=== PATIENT | male | born 1970 | race Caucasian/White ===

== ENCOUNTER 2016-10-07 06:36 | Inpatient (IN) | payer OTHER ==
[~2016-10-07] VITALS: Ht 180.3 cm; Wt 80.0 kg
[~2016-10-07 06:36] MED LIST: CEPH500C PO; LRT5 PO
[2016-10-07] MEDS ORDERED: SODIUM CHLORIDE 0.9% 1000ML 1,000 ML IV ONE (07:00)
--- NOTE | 2016-10-07 07:02 | EMERGENCY ROOM VISIT NOTE ---
History Report prepared by Ranjan: Theresa Max Under the Supervision of: Dr. Kayode Beverly M.D. First contact with patient: 06:51 Chief Complaint: ABDOMINAL PAIN Stated Complaint: ABDOMINAL PAIN History of Present Illness The patient is a 46 year old male who presents to the Emergency Room with complaints of persistent diffuse abdominal pain that began around 0300 this morning. He currently rates his discomfort as a 10/10 in severity and he describes his pain as a stabbing, pressure, and sharp pain. The patient states that over the past three days he has been battling chills, diaphoresis, and a sore throat. He states that his symptoms appeared to be clearing up yesterday and was beginning to feel better. The patient states that at 0300 this morning he developed abdominal pain and he denies ever having pain like this in the past. He additionally associates nausea, vomiting, and diarrhea with his symptoms today. The patient denies any history of abdominal surgeries. Source of History: patient Onset: 0300 this morning Position: abdomen (diffuse) Symptom Intensity: 10/10 Quality: pressure, sharp, stabbing Timing: other (persistent) Associated Symptoms: + chills, + diaphoresis, + diarrhea, + nausea, + sorethroat, + vomiting Review of Systems All systems have been listed, reviewed, and are negative other than those previously mentioned. Please see Additional Medical History Sheet. Past Medical & Surgical Medical Problems: (1) No active medical problems Family History Patient reports no known family medical history. Social History Smoking Status: Never Smoker Alcohol Use: occasionally Marital Status: Occupation Status: employed Current/Historical Medications No Active Prescriptions or Reported Meds Allergies Coded Allergies: No Known Allergies (Unverified , 10/07/16) Physical Exam Vital Signs Date Time Temp Pulse Resp B/P Pulse Ox O2 Delivery O2 Flow Rate FiO2 10/07/16 11:40 37.4 99 12 138/90 93 Room Air 10/07/16 11:24 103 16 138/82 94 10/07/16 11:18 103 16 138/82 94 Room Air 10/07/16 09:55 112 16 130/82 93 Room Air 10/07/16 08:13 120 16 128/96 93 Room Air 10/07/16 06:46 99 10/07/16 06:42 38.1 91 22 142/105 97 Room Air Physical Exam GENERAL: Patient awake, alert, oriented x 3. Patient follows commands. Patient appears to be in moderate to severe distress. Patient is adequately hydrated and well-nourished. SKIN: No erythema, pallor, cyanosis or rash HEENT: Normal head, pupils equal, reactive to light and accommodation. Oral cavity and posterior pharynx appear slightly dry. Neck: Without adenopathy, no neck vein distention. LUNGS: Clear to auscultation. No wheezes, no rales, no rhonchi. HEART: No murmurs. No gallops. No rubs ABDOMEN: Diffuse tenderness to palpation, bowel sounds are present. No masses, no rebound, no hepatomegaly or splenomegaly. EXTREMITIES: No signs of trauma. No pedal or pretibial edema. No calf or thigh tenderness. NEUROLOGIC: Cranial nerves II-XII within normal limits. No gross motor sensory function deficits. Medical Decision & Procedures ER Provider Diagnostic Interpretation: CT results are interpretations by the radiologist and per my review. ABDOMEN AND PELVIS CT WITH IV AND ORAL CONTRAST CT DOSE: 300.22 mGy.cm HISTORY: mid abd pain TECHNIQUE: Multiaxial CT images of the abdomen and pelvis were performed following the use of intravenous and oral contrast. COMPARISON STUDY: None. FINDINGS: Mild dependent changes seen within the lung bases. Moderate pneumoperitoneum. No suspicious lytic or blastic osseous lesions. The spleen, gallbladder, liver, adrenal glands, and kidneys are unremarkable. Possible pancreas divisum. The pancreas enhances normally. No retroperitoneal lymphadenopathy. The bladder is unremarkable. Multiple colonic diverticula. Inflammatory change seen within the pelvis surrounding the small bowel and the mid sigmoid colon. Therefore, these findings favor acute diverticulitis. This likely results in the free air due to the perforation. Normal caliber appendix. Thickened loops of small bowel from the deep pelvis may be reactive. No evidence for bowel obstruction. Few scattered small partially loculated fluid collections seen within the deep pelvis, left lower quadrant, and mid abdomen/pelvis. The mid abdominal/pelvic collection measures 2.3 cm. These may represent small developing abscesses. IMPRESSION: 1. Moderate pneumoperitoneum. The exact location is difficult to identify but is likely due to perforated acute sigmoid diverticulitis. 2. There are few small partially loculated fluid collection seen within the pelvis suggestive of developing abscesses. 3. Thickened loops of small bowel within the deep pelvis may be reactive to the adjacent inflammatory change. No evidence for bowel obstruction. 4. Additional findings as described above. 5. These findings were discussed with Dr. Beverly at 10:00 AM on 10/07/2016. Electronically signed by: Arturo Gaspar M.D. 10/07/2016 10:05 AM Dictated Date/Time: 10/07/2016 9:56 AM Laboratory Results 10/07/16 06:50 Red Blood Count 5.47, Mean Corpuscular Volume 86.8, Mean Corpuscular Hemoglobin 31.4, Mean Corpuscular Hemoglobin Concent 36.2, Mean Platelet Volume 9.7, Neutrophils (%) (Auto) 86.8, Lymphocytes (%) (Auto) 7.1, Monocytes (%) (Auto) 5.7, Eosinophils (%) (Auto) 0.0, Basophils (%) (Auto) 0.2, Neutrophils # (Auto) 5.77, Lymphocytes # (Auto) 0.47, Monocytes # (Auto) 0.38, Eosinophils # (Auto) 0.00, Basophils # (Auto) 0.01 10/07/16 06:50 Test 10/07/16 06:50 10/07/16 06:55 White Blood Count 6.64 K/uL (4.8-10.8) Red Blood Count 5.47 M/uL (4.7-6.1) Hemoglobin 17.2 g/dL (14.0-18.0) Hematocrit 47.5 % (42-52) Mean Corpuscular Volume 86.8 fL (80-100) Mean Corpuscular Hemoglobin 31.4 pg (25-34) Mean Corpuscular Hemoglobin Concent 36.2 g/dl (32-36) Platelet Count 128 K/uL (130-400) Mean Platelet Volume 9.7 fL (7.4-10.4) Neutrophils (%) (Auto) 86.8 % Lymphocytes (%) (Auto) 7.1 % Monocytes (%) (Auto) 5.7 % Eosinophils (%) (Auto) 0.0 % Basophils (%) (Auto) 0.2 % Neutrophils # (Auto) 5.77 K/uL (1.4-6.5) Lymphocytes # (Auto) 0.47 K/uL (1.2-3.4) Monocytes # (Auto) 0.38 K/uL (0.11-0.59) Eosinophils # (Auto) 0.00 K/uL (0-0.5) Basophils # (Auto) 0.01 K/uL (0-0.2) RDW Standard Deviation 39.2 fL (36.4-46.3) RDW Coefficient of Variation 12.2 % (11.5-14.5) Immature Granulocyte % (Auto) 0.2 % Immature Granulocyte # (Auto) 0.01 K/uL (0.00-0.02) Anion Gap 9.0 mmol/L (3-11) Estimated GFR () 75.3 Estimated GFR (Non- 65.0 BUN/Creatinine Ratio 9.0 (10-20) Calcium Level 8.4 mg/dl (8.5-10.1) Total Bilirubin 0.9 mg/dl (0.2-1) Aspartate Amino Transf (AST/SGOT) 18 U/L (15-37) Alanine Aminotransferase (ALT/SGPT) 22 U/L (12-78) Alkaline Phosphatase 65 U/L (45-117) Total Protein 7.5 gm/dl (6.4-8.2) Albumin 4.1 gm/dl (3.4-5.0) Globulin 3.4 gm/dl (2.5-4.0) Albumin/Globulin Ratio 1.2 (0.9-2) Lipase 113 U/L (73-393) Laboratory results as stated above per my review. Medications Administered Medications (Trade) Dose Ordered Sig/Westley Route Start Time Stop Time Status Last Admin Dose Admin Morphine Sulfate (MoRPHine SULFATE INJ) 8 mg Q1H PRN IV 10/07/16 07:00 10/21/16 06:59 10/07/16 11:01 8 MG Ondansetron HCl 4 mg 4 mg PRN PRN IV 10/07/16 07:00 11/06/16 06:59 10/07/16 11:01 4 MG Sodium Chloride (Nss 1000ml) 1,000 ml @ 1,000 mls/hr Q1H ONCE IV 10/07/16 07:00 10/07/16 07:59 DC 10/07/16 07:15 1,000 MLS/HR ECG Rate (beats per minute): 97 Rhythm: normal sinus Findings: nonspecific-ST abn, no ectopy ED Course 0650: Past medical records reviewed. The patient was evaluated in room B11B. A complete history and physical examination was performed. 0700: Ordered Sodium Chloride 1000 ml @ 1000 mls/hr IV, Zofran Inj 4 mg IV, Morphine Sulfate 8 mg IV. 0741: I reevaluated the patient and he is feeling much better. 0959: I discussed the patients case with Dr. Gaspar, Radiology. He notes that the patient has perforated diverticulitis. 1004: I reevaluated the patient and he is resting comfortably. I discussed the exam findings with him and I discussed the treatment plan. General Surgery will be consulted for further evaluation and treatment. 1014: I discussed the patients case with Dr. Brown General Surgery. He is going to come evaluate the patient for further treatment. Medical Decision Nurses notes reviewed. Medical history sheet reviewed. Differential diagnosis includes but is not limited to: acute gastroenteritis, peptic/gastric ulcer disease, bowel obstruction, diverticulitis, metabolic disorder, kidney stone, mesenteric infarction. Patient arrived here in severe distress. Patient can hardly stay still. Patient was given IV pain medication with help considerably repeat exam was unremarkable he had a soft but vaguely tender abdomen. Multiple labs and imaging were obtained. CT of his abdomen revealed free air consistent with a perforation most likely in the sigmoid colon. The patient remained afebrile and his white count was not elevated. Consultation was obtained with surgery who evaluated the patient in the ED. The patient was given IV fluids, morphine, Zofran. Consults Time Called: 1010 Consulting Physician: Dr. Brown, General Surgery Returned Call: [phone] I discussed the patients case with Dr. Brown, General Surgery. He is going to come evaluate the patient for further treatment. Impression Primary Impression: Perforated viscus Additional Impression: Hypokalemia Scribe Attestation The scribe's documentation has been prepared under my direction and personally reviewed by me in its entirety. I confirm that the note above accurately reflects all work, treatment, procedures, and medical decision making performed by me. Departure Information Dispostion Being Evaluated By Surgeon Prescriptions No Active Prescriptions or Reported Meds Problem Qualifiers
[2016-10-07 07:07] LABS: BASO % 0.2 %; BASO ABS # 0.01 K/uL (0-0.2); COMPLETE YES; HEMATOCRIT 47.5 % (42-52); IG% 0.2 %; LYMPH % 7.1 %; LYMPH ABS # 0.47 K/uL (1.2-3.4); MEAN CELL VOLUME 86.8 fL (80-100); MEAN CORPUSCULAR HEMOGLOBIN 31.4 pg (25-34); MEAN CORPUSCULAR HGB CONC 36.2 g/dl (32-36); MEAN PLATELET VOLUME 9.7 fL (7.4-10.4); MONO % 5.7 %; NEUT % 86.8 %; PLATELET COUNT 128 K/uL (130-400); RED BLOOD COUNT 5.47 M/uL (4.7-6.1); WHITE BLOOD COUNT 6.64 K/uL (4.8-10.8)
[2016-10-07] MEDS: ONDANSETRON INJ 2 MG/ML 2 ML VIAL IV PRN ×3 (07:14→23:39)
[2016-10-07] MEDS: MoRPHine SULFATE 10 MG/ML CARP/VIAL IV PRN ×3 (07:15→11:01)
[2016-10-07 07:33] LABS: ALT/SGPT 22 U/L (12-78); AST/SGOT 18 U/L (15-37); BLOOD UREA NITROGEN 12 mg/dl (7-18); CALCIUM 8.4 mg/dl (8.5-10.1); CARBON DIOXIDE 27 mmol/L (21-32); CHLORIDE 100 mmol/L (98-107); GLUCOSE 178 mg/dl (70-99); POTASSIUM 3.1 mmol/L (3.5-5.1); SODIUM 136 mmol/L (136-145)
[2016-10-07 07:36] LABS: ALB/GLOB RATIO 1.2 (0.9-2); ALKALINE PHOSPHATASE 65 U/L (45-117)
[2016-10-07] MEDS ORDERED: OPTIRAY 320 IV PRN (09:15)
--- NOTE | 2016-10-07 10:07 | DIAGNOSTIC IMAGING REPORT ---
ABDOMEN AND PELVIS CT WITH IV AND ORAL CONTRAST CT DOSE: 300.22 mGy.cm HISTORY: mid abd pain TECHNIQUE: Multiaxial CT images of the abdomen and pelvis were performed following the use of intravenous and oral contrast. COMPARISON STUDY: None. FINDINGS: Mild dependent changes seen within the lung bases. Moderate pneumoperitoneum. No suspicious lytic or blastic osseous lesions. The spleen, gallbladder, liver, adrenal glands, and kidneys are unremarkable. Possible pancreas divisum. The pancreas enhances normally. No retroperitoneal lymphadenopathy. The bladder is unremarkable. Multiple colonic diverticula. Inflammatory change seen within the pelvis surrounding the small bowel and the mid sigmoid colon. Therefore, these findings favor acute diverticulitis. This likely results in the free air due to the perforation. Normal caliber appendix. Thickened loops of small bowel from the deep pelvis may be reactive. No evidence for bowel obstruction. Few scattered small partially loculated fluid collections seen within the deep pelvis, left lower quadrant, and mid abdomen/pelvis. The mid abdominal/pelvic collection measures 2.3 cm. These may represent small developing abscesses. IMPRESSION: 1. Moderate pneumoperitoneum. The exact location is difficult to identify but is likely due to perforated acute sigmoid diverticulitis. 2. There are few small partially loculated fluid collection seen within the pelvis suggestive of developing abscesses. 3. Thickened loops of small bowel within the deep pelvis may be reactive to the adjacent inflammatory change. No evidence for bowel obstruction. 4. Additional findings as described above. 5. These findings were discussed with Dr. Beverly at 10:00 AM on 10/07/2016. Electronically signed by: Arturo Gaspar M.D. 10/07/2016 10:05 AM Dictated Date/Time: 10/07/2016 9:56 AM
--- NOTE | 2016-10-07 11:29 | Surgery Consultation ---
Consultation Date of Consultation: Oct 07, 2016. Attending Physician: (Eunice Bates PA-C) History of Present Illness Damian is a pleasant 46 year-old male who presented to the emergency room via ambulance this morning complaining of severe generalized abdominal pain that woke him up this morning. States he had chills, sweating and sore throat on Friday however denied of any abdominal pain at the time. States he was severely shivering with chills and using 6 blankets to keep warm. Sore throat and chills and sweating seemed to resolve and then woke up with the pain this morning. Has never had similar abdominal pain in the past. States he could barely move this morning due to the abdominal pain, every step caused pain. Did not feel he could drive to the hospital himself because of the pain. Had some dry heaves and vomiting this morning. Denies of any changes in his bowel habits recently, diarrhea, constipation, blood in stools, black/tarry stools, mucous in stools, unintentional weight loss, dysuria, blood in urine, air in urine. States he feels as though he has to urinate but cannot and abdomen feels bloated. States the pain is better with his knees up. Damian had no leukocytosis however a fever of 38.[address] scan of the abdomen and pelvis with contrast showed inflammatory change in the pelvis with findings of acute diverticulitis of the sigmoid colon with pneumoperitoneum suggest acute diverticulitis with perforation and possible formation of abscess in the pelvis. Damian states he has never been diagnosed with diverticulosis or had any episodes of diverticulitis in the past. (Eunice Bates PA-C) Past Medical/Surgical History Medical Problems: (1) Perforated viscus Status: Acute (Eunice Bates PA-C) Family History Patient reports no known family medical history. (Eunice Bates PA-C) Patient reports no known family medical history. (Felipe Brown M.D.) Social History Smoking Status: Never Smoker (uses chewing tobacco) Smokeless Tobacco Use: Yes Alcohol Use: occasionally Drug Use: none Marital Status: Occupation Status: employed (Eunice Bates PA-C) Allergies Coded Allergies: No Known Allergies (Unverified , 10/07/16) Home Medications No Active Prescriptions or Reported Meds Current Inpatient Medications Current Inpatient Medications Medications (Trade) Dose Ordered Sig/Westley Route Start Time Stop Time Status Last Admin Dose Admin Morphine Sulfate (MoRPHine SULFATE INJ) 8 mg Q1H PRN IV 10/07/16 07:00 10/21/16 06:59 10/07/16 11:01 8 MG Ondansetron HCl (Zofran Inj) 4 mg PRN PRN IV 10/07/16 07:00 11/06/16 06:59 10/07/16 11:01 4 MG Ioversol (Optiray 320) 125 ml UD PRN IV 10/07/16 09:15 10/11/16 09:14 (Eunice Bates PA-C) Review of Systems Constitutional: + chills, + fever, + sweats, No weight loss Cardiovascular: No chest pain Abdomen: + diarrhea, + nausea, + pain, + vomiting Genitourinary - Male: + urinary retention, No dysuria, No hematuria Endocrine: + fatigue Integumentary: No rash (Eunice Bates, PEDROC) Physical Exam Date Time Temp Pulse Resp B/P Pulse Ox O2 Delivery O2 Flow Rate FiO2 10/07/16 09:55 112 16 130/82 93 Room Air 10/07/16 08:13 120 16 128/96 93 Room Air 10/07/16 06:46 99 10/07/16 06:42 38.1 91 22 142/105 97 Room Air General Appearance: WD/WN, + moderate distress Head: normocephalic, atraumatic Eyes: sclerae normal ENT: hearing grossly normal Neck: supple, trachea midline Respiratory/Chest: lungs clear, normal breath sounds, no respiratory distress, no accessory muscle use Cardiovascular: no murmur, + tachycardia Abdomen/GI: soft, no organomegaly, + distended (mild), + guarding (involuntary guarding, no peritonitis, no rigidity) Back: normal inspection, no CVA tenderness Extremities/Musculoskelatal: normal inspection, no pedal edema Neurologic/Psych: alert, normal mood/affect, oriented x 3 Skin: normal color, warm/dry, no rash (Eunice Bates PA-C) Laboratory Results Last 24 Hours Test 10/07/16 06:50 10/07/16 06:55 White Blood Count 6.64 K/uL Red Blood Count 5.47 M/uL Hemoglobin 17.2 g/dL Hematocrit 47.5 % Mean Corpuscular Volume 86.8 fL Mean Corpuscular Hemoglobin 31.4 pg Mean Corpuscular Hemoglobin Concent 36.2 g/dl Platelet Count 128 K/uL Mean Platelet Volume 9.7 fL Neutrophils (%) (Auto) 86.8 % Lymphocytes (%) (Auto) 7.1 % Monocytes (%) (Auto) 5.7 % Eosinophils (%) (Auto) 0.0 % Basophils (%) (Auto) 0.2 % Neutrophils # (Auto) 5.77 K/uL Lymphocytes # (Auto) 0.47 K/uL Monocytes # (Auto) 0.38 K/uL Eosinophils # (Auto) 0.00 K/uL Basophils # (Auto) 0.01 K/uL RDW Standard Deviation 39.2 fL RDW Coefficient of Variation 12.2 % Immature Granulocyte % (Auto) 0.2 % Immature Granulocyte # (Auto) 0.01 K/uL Sodium Level 136 mmol/L Potassium Level 3.1 mmol/L Chloride Level 100 mmol/L Carbon Dioxide Level 27 mmol/L Anion Gap 9.0 mmol/L Blood Urea Nitrogen 12 mg/dl Creatinine 1.30 mg/dl Estimated GFR () 75.3 Estimated GFR (Non- 65.0 BUN/Creatinine Ratio 9.0 Random Glucose 178 mg/dl Calcium Level 8.4 mg/dl Total Bilirubin 0.9 mg/dl Aspartate Amino Transf (AST/SGOT) 18 U/L Alanine Aminotransferase (ALT/SGPT) 22 U/L Alkaline Phosphatase 65 U/L Total Protein 7.5 gm/dl Albumin 4.1 gm/dl Globulin 3.4 gm/dl Albumin/Globulin Ratio 1.2 Lipase 113 U/L (Eunice Bates ., MARISA) Assessment & Plan Acute Diverticulitis with Perforation and Pneumoperitoneum -no leukocytosis - febrile on arrival to ED - CT scan showing free air and inflammatory process in the pelvis surrounding small bowel and colon likely acute diverticulitis and possible abscess formation - Abdomen soft, no peritonitis however involuntary guarding present throughout abdomen Plan: Plan to take patient back to operating room for exploratory laparotomy, colon resection with colostomy formation and placement of wound vac. Patient was informed of the indications of the procedure as well as the risks including but not limited to bleeding, infection, injury to surrounding organs/tissues, ureter injury, wound infection, cardiopulmonary complications, blood clots, and . Patient understands and informed consent obtained He will be admitted to the med/surg floor post op most likely for 5-7 days He will be placed on antibiotics pre-operatively and post-operatively Dr. Brown has seen and examined patient, agrees with above stated findings and treatment plan. (Eunice Bates ., MARISA) I interviewed and examined this patient and reviewed the lab values and the radiology images and reports and I agree with the above note. 46 y/o with chills for the last 3 days who awoke wihth severe abdominal pain this AM. Pain increased with motion. Diffuse tenderness on exam with significant involuntary guarding. CT consistent with perforated diverticulitis with significant free air. Discussed options with patient but feel surgical intervention is best option. I explained the procedure including the formation of a colostomy and leaving the skin open and the use of a wound vac. I explained the possible complications and answered his questions and he has signed a consent form. (Felipe Brown M.D.)
[2016-10-07] MEDS ORDERED: FENTANYL CITRATE INJ 50 MCG/1 ML 2 ML VIAL ONE ×2 (11:47→13:00)
[2016-10-07] MEDS ORDERED: MIDAZOLAM HCL 1 MG/ML 2ML VIAL ONE (11:47)
[2016-10-07] MEDS ORDERED: EpHEDrine SULFATE INJ 50 MG/ML AMP IV PRN ×2 (12:15→13:15)
[2016-10-07] MEDS ORDERED: CEFOXITIN IV 2,000 MG in DEXTROSE 5% 50ML 50 ML IV SCH (12:15)
[2016-10-07] MEDS ORDERED: FENTANYL CITRATE INJ 50 MCG/1 ML 2 ML VIAL IV PRN ×2 (12:15→13:15)
[2016-10-07] MEDS ORDERED: HYDROmorphone INJ 0.5 MG/0.5 ML SYR IV PRN (12:15)
[2016-10-07] MEDS ORDERED: ONDANSETRON INJ 2 MG/ML 2 ML VIAL IV PRN ×2 (12:15→13:15)
[2016-10-07] MEDS ORDERED: ATROPINE SULFATE 0.1 MG/ML 5ML SYR IV PRN ×2 (12:15→13:15)
[2016-10-07] MEDS ORDERED: HYDROmorphone INJ 2 MG/ML SYR/VIAL ONE (12:42)
[2016-10-07] MEDS ORDERED: DEXAMETHASONE SOD INJ 4 MG/ML VIAL ONE (12:55)
[2016-10-07] MEDS ORDERED: LIDOCAINE HCL 2% 2 ML VIAL (20MG/ML) ONE (12:55)
[2016-10-07] MEDS ORDERED: GLYCOPYRROLATE INJ 0.2 MG/ML VIAL ONE (12:55)
[2016-10-07] MEDS ORDERED: NEOSTIGMINE METHYLSULFATE 5 MG/5 ML SYR ONE (12:55)
[2016-10-07] MEDS ORDERED: SUCCINYLCHOLINE CHLORIDE 20 MG/ML 10 ML VIAL IV ONE (12:55)
[2016-10-07] MEDS ORDERED: ONDANSETRON INJ 2 MG/ML 2 ML VIAL ONE (12:55)
[2016-10-07] MEDS ORDERED: PROPOFOL IV EMULSION 10 MG/ML 20 ML VIAL IV ONE (12:55)
[2016-10-07] MEDS ORDERED: ROCURONIUM BROMIDE 10 MG/ML 5 ML VIAL ONE ×2 (12:55→13:01)
[2016-10-07] MEDS ORDERED: HYDROmorphone INJ 1 MG/ML SYR IV PRN (13:15)
--- NOTE | 2016-10-07 14:52 | [facility] Post Operative Brief Note ---
Immediate Operative Summary Operative Date Oct 07, 2016. Pre-Operative Diagnosis Acute Diverticulitis with Perforation and Pneumoperitoneum Post-Operative Diagnosis Perforated Diverticulitis Procedure(s) Performed Exploratory Laparotomy, Partial Sigmoid Resection, Formation of Colostomy Surgeon Dr. Felipe Brown [employer] Surgeon(s) Eunice Bates PA-C Estimated Blood Loss 250mL Findings See dictation Specimens A: Portion of sigmoid colon Microbiology Culture #1: Peritoneal fluid: Aerobic and anerobic sent for gram stain, routine culture & sensitivity, Left room at 1252. Drains One J-P placed in the pelvis Anesthesia General Complication(s) None Disposition Recovery Room / PACU
[2016-10-07] MEDS ORDERED: NALOXONE HCL 0.4 MG/1 ML VIAL/CARP IV PRN (15:00)
[2016-10-07] MEDS ORDERED: HYDROmorphone HCL 0.5MG/ML 50 ML CASSETTE ONE (15:35)
[2016-10-07 16:04] LABS: BLOOD UREA NITROGEN 9 mg/dl (7-18); BUN/CREATININE RATIO 8.6 (10-20); CARBON DIOXIDE 29 mmol/L (21-32); CHLORIDE 103 mmol/L (98-107); CREATININE 0.99 mg/dl (0.60-1.40); GLUCOSE 145 mg/dl (70-99); SODIUM 137 mmol/L (136-145)
[2016-10-07 16:24] LABS: POTASSIUM 3.9 mmol/L (3.5-5.1)
--- NOTE | 2016-10-07 16:28 | Anesthesiology Progress Note ---
Anesthesia Post Op Note Date & Time Oct 07, 2016 at 16:27 Vital Signs Pain Intensity: 0 Vital Signs Past 12 Hours Date Time Temp Pulse Resp B/P Pulse Ox O2 Delivery O2 Flow Rate FiO2 10/07/16 16:15 98 15 120/83 94 Nasal Cannula 3 10/07/16 16:00 100 16 131/86 93 Nasal Cannula 3 10/07/16 15:50 95 18 128/87 94 Nasal Cannula 3 10/07/16 15:40 36.8 97 17 118/84 94 Nasal Cannula 3 10/07/16 15:30 95 16 131/89 95 Nasal Cannula 3 10/07/16 15:20 96 16 116/84 99 Mask 10 10/07/16 15:10 101 12 135/84 99 Mask 10 10/07/16 15:04 36.7 100 21 138/85 98 Mask 10 10/07/16 11:40 37.4 99 12 138/90 93 Room Air 10/07/16 11:24 103 16 138/82 94 10/07/16 11:18 103 16 138/82 94 Room Air 10/07/16 09:55 112 16 130/82 93 Room Air 10/07/16 08:13 120 16 128/96 93 Room Air 10/07/16 06:46 99 10/07/16 06:42 38.1 91 22 142/105 97 Room Air Notes Mental Status: alert / awake / arousable, participated in evaluation Pt Amnestic to Procedure: Yes Nausea / Vomiting: adequately controlled Pain: adequately controlled Airway Patency, RR, SpO2: stable & adequate BP & HR: stable & adequate Hydration State: stable & adequate Anesthetic Complications: no major complications apparent
[2016-10-07 17:00] VITALS: BP 121/87; PULSE 98; TEMP 36.8; O2SAT 95; O2SAT 96
[2016-10-07] MEDS: ALUMINUM/MAGNESIUM SUSP 30 ML UDC NG SCH ×2 (17:00→20:49)
[2016-10-07 17:30] VITALS: BP 117/80; PULSE 95; TEMP 36.3; O2SAT 96
[2016-10-07] MEDS: SODIUM CHLORIDE 0.9% 1000ML 1,000 ML IV SCH (17:49)
[2016-10-07 17:57] VITALS: BP 119/76; PULSE 97; TEMP 36.7; O2SAT 96
--- NOTE | 2016-10-07 18:09 | OPERATIVE REPORT ---
DATE OF OPERATION: 10/07/2016 PREOPERATIVE DIAGNOSIS: Perforated sigmoid diverticulitis. POSTOPERATIVE DIAGNOSIS: Same. PROCEDURE: Exploratory laparotomy with partial sigmoid colon resection and formation of colostomy. SURGEON: Dr. Felipe Brown. ANESTHESIOLOGY CRNA: Eunice Bates PA-C FINDINGS: There was a large amount of turbid fluid throughout the abdomen. This was cultured. There was thickening of the mid sigmoid colon for a distance of about 5 cm. Within that, there was a small area of perforation on the right side just above the mesentery. There was thickening of the fat in that area. There was thickening of the epiploica in that area. There was hyperemia of the small bowel that was easily brought out from the pelvis. There were some areas of small bowel that had fibrinous material attached to the serosa. There was no evidence of a gastric or duodenal perforation. The small bowel was inspected for Meckel's diverticulum and none was identified. The NG tube was in good position. The liver was palpated. There was no evidence of mass lesion. The small bowel other than described above appeared normal. TECHNIQUE: The patient was given a general anesthetic and the area was prepped and draped in the usual sterile fashion. Vertical midline incision was made from just right at the umbilicus down towards the pubic bone. The fascia was opened in the midline and the fascia was opened in the midline. The posterior sheath was grasped with 2 Willian clamps and incised between. The peritoneum was identified, incised and the abdomen was entered through the incision and all the layers were carried along the length of the skin incision. Exploration of the abdomen was performed. The turbid fluid was identified and was cultured. The turbid fluid in the pelvis was removed. The liver was palpated. The stomach was palpated and there was no evidence of a perforation of the stomach or duodenum. The small bowel was inspected. There was no Meckel's diverticulum. The thickening in the sigmoid colon was easily identified. The sigmoid was mobilized from its lateral attachments and elevated. I was then able to identify the site of perforation. The left colon was then mobilized by opening the line of Toldt and its attachments to the lateral abdominal wall and that dissection was then carried up along the left side of the sigmoid colon, freeing its attachments there. The perforation was then able to be elevated. A site proximal to the thickened bowel was chosen for division. The mesentery was away from the wall at that point and the SONJA stapler was used to divide the colon. I then divided the sigmoid mesentery, working down towards the sacral promontory using a clamp-clamp, divide and ligate technique. There was a lot of oozing from the areas of inflammation. Once I was well beyond the area of thickened colon, the site on the sigmoid colon, which was just above the level of the sacral promontory, was chosen for division. The mesentery was away from the wall of the bowel at that point and the bowel was divided using the SONJA. The remainder of any mesenteric attachments were divided using a clamp-clamp, divide, and ligate technique and this specimen was sent for pathology. The left edge of the staple line on the distal bowel was then secured to the inferior portion of his abdominal wall in the upper pelvic wall using a 2-0 Prolene. The area of dissection was inspected. There were a few areas of oozing that were clamped and ligated. They were ligated with [id number] sutures of either 2-0 silk or 2-0 Prolene. An additional mesentery was divided allowing for better mobilization and more room for the colostomy to be performed. The site for the colostomy was chosen. This was chosen just lateral to the left side of the umbilicus. He had a short distance from the umbilicus to the lower abdominal crease as I was concerned that the ostomy appliance would not fit well. The skin at the site was removed in a circular fashion allowing some of the subcutaneous tissue, which was then opened down to the rectus fascia. A cruciate incision was made in the rectus fascia. The muscle was split. The posterior sheath and peritoneum were opened such that it allowed for 2 fingers easily. The colon was then brought out through the colostomy opening and fit easily. There was no tension. I did that making sure not to twist the mesentery. The abdomen was irrigated with a copious amount of saline solution and that was removed. The areas of dissection were again inspected for bleeding and none was seen. A separate stab incision was made on the right side in the lower quadrant, through which a 10-mm Darrel-Heard was brought. The Darrel-Heard was placed in the pelvis and secured to the skin with a 3-0 nylon. The fascia in the midline was then closed with a running #1 PDS. The incision was left open and packed. The colostomy was then matured. The staple line was removed and full-thickness bites were taken and sewn to the dermis of the skin in a [place] fashion. The ostomy was pink and viable at the time of closure and there was oozing of arterial blood from the edge when the staple line was removed and had to be controlled with cautery indicating good blood supply. The wound was packed and dressing placed and an ostomy appliance applied. The estimated blood loss was 250 mL. Sponge, needle and instrument counts were correct prior to closure. The patient tolerated the surgical procedure without complication and was transferred to recovery. I attest to the content of the Intraoperative Record and any orders documented therein. Any exceptions are noted below. MTDD
[2016-10-07] MEDS: PIPERACILL/TAZOBAC IV 3.375 GM in DEXTROSE 5% 100ML 100 ML IV SCH (18:32)
[2016-10-07] MEDS: NSS + 20MEQ KCL 1000ML 1,000 ML IV SCH (18:32)
[2016-10-07 19:00] VITALS: BP 116/84; PULSE 82; TEMP 36.4; O2SAT 95
[2016-10-07 19:52] VITALS: BP 133/85; PULSE 86; TEMP 36.5; O2SAT 95
[2016-10-07] MEDS: PATIENT'S HEIGHT AND/OR WEIGHT NEEDED SCH (20:41)
[2016-10-07 20:42] VITALS: Ht 180.3 cm; Wt 80.0 kg
[2016-10-07 22:52] VITALS: BP 120/75; PULSE 89; TEMP 36.4; O2SAT 94
[2016-10-07] MEDS: HYDROmorphone HCL 0.5MG/ML 50 ML CASSETTE IV PRN (23:16)
[2016-10-08] VITALS (7 sets, daily range): BP systolic 104–129; BP diastolic 67–83; PULSE 77–109; TEMP 34.8–37.7; O2SAT 95–98
[2016-10-08] MEDS: NSS + 20MEQ KCL 1000ML 1,000 ML IV SCH ×3 (01:39→17:52)
[2016-10-08] MEDS: PIPERACILL/TAZOBAC IV 3.375 GM in DEXTROSE 5% 100ML 100 ML IV SCH ×3 (01:40→18:22)
[2016-10-08] MEDS ORDERED: CEFOXITIN SOD 2 GM VIAL IV ONE (06:00)
[2016-10-08 06:17] LABS: HEMATOCRIT 40.7 % (42-52); MEAN CELL VOLUME 87.2 fL (80-100); MEAN CORPUSCULAR HEMOGLOBIN 30.2 pg (25-34); MEAN CORPUSCULAR HGB CONC 34.6 g/dl (32-36); MEAN PLATELET VOLUME 9.8 fL (7.4-10.4); PLATELET COUNT 111 K/uL (130-400); RED BLOOD COUNT 4.67 M/uL (4.7-6.1); WHITE BLOOD COUNT 7.11 K/uL (4.8-10.8)
[2016-10-08 06:32] LABS: INR 1.6 (0.9-1.1); PROTHROMBIN TIME (PATIENT) 17.8 SECONDS (9.0-12.0)
[2016-10-08 06:37] LABS: COMPLETE YES; IG% 0.1 %; LYMPH % 4.9 %; LYMPH ABS # 0.35 K/uL (1.2-3.4); MONO % 5.1 %; NEUT % 89.9 %
[2016-10-08 06:39] LABS: BUN/CREATININE RATIO 7.5 (10-20); CALCIUM 7.3 mg/dl (8.5-10.1); CREATININE 1.1 mg/dl (0.60-1.40); POTASSIUM 3.6 mmol/L (3.5-5.1)
[2016-10-08] MEDS: HYDROmorphone HCL 0.5MG/ML 50 ML CASSETTE IV PRN ×3 (07:08→23:00)
[2016-10-08] MEDS: ONDANSETRON INJ 2 MG/ML 2 ML VIAL IV PRN ×2 (07:48→18:39)
--- NOTE | 2016-10-08 09:00 | Anesthesiology Progress Note ---
Anesthesia Post Op Note Date & Time Oct 08, 2016 at 08:59 Vital Signs Pain Intensity: 7.0 Vital Signs Past 12 Hours Date Time Temp Pulse Resp B/P Pulse Ox O2 Delivery O2 Flow Rate FiO2 10/08/16 07:50 36.5 77 15 121/75 96 Room Air 10/08/16 07:40 Nasal Cannula 2.0 10/08/16 03:20 37.4 85 16 114/76 98 Nasal Cannula 2.0 10/07/16 23:35 Nasal Cannula 2.0 10/07/16 22:52 36.4 89 14 120/75 94 Nasal Cannula 2.0 Notes Mental Status: alert / awake / arousable, participated in evaluation Pt Amnestic to Procedure: Yes Nausea / Vomiting: adequately controlled Pain: adequately controlled Airway Patency, RR, SpO2: stable & adequate BP & HR: stable & adequate Hydration State: stable & adequate Anesthetic Complications: no major complications apparent
[2016-10-08] MEDS: ALUMINUM/MAGNESIUM SUSP 30 ML UDC NG SCH ×4 (09:58→21:59)
--- NOTE | 2016-10-08 10:20 | Surgery Progress Note ---
Surgery Progress Note Date of Service Oct 08, 2016. Subjective Post OP Day: 1 (POD # 1 s/p ex lap with partial sigmoid colectomy, colostomy formation) + nausea, No SOB, No ambulating, No chest pain, No vomiting "Feeling okay" Pain is much better compared to pre-op now just sore Pain medication helping Slight nausea no vomiting No chest pain or shortness of breath Objective Vital Signs: Date Time Temp Pulse Resp B/P Pulse Ox O2 Delivery O2 Flow Rate FiO2 10/08/16 07:50 36.5 77 15 121/75 96 Room Air 10/08/16 07:40 Nasal Cannula 2.0 10/08/16 03:20 37.4 85 16 114/76 98 Nasal Cannula 2.0 10/07/16 23:35 Nasal Cannula 2.0 10/07/16 22:52 36.4 89 14 120/75 94 Nasal Cannula 2.0 10/07/16 19:52 36.5 86 20 133/85 95 Nasal Cannula 2.0 10/07/16 19:00 36.4 82 18 116/84 95 Nasal Cannula 3.0 10/07/16 17:57 36.7 97 18 119/76 96 Nasal Cannula 3.0 10/07/16 17:30 36.3 95 18 117/80 96 Nasal Cannula 3.0 10/07/16 17:00 95 Nasal Cannula 3.0 10/07/16 17:00 36.8 98 18 121/87 96 Nasal Cannula 3.0 10/07/16 16:45 105 14 126/87 94 Nasal Cannula 3 10/07/16 16:30 97 15 138/82 95 Nasal Cannula 3 10/07/16 16:15 98 15 120/83 94 Nasal Cannula 3 10/07/16 16:00 100 16 131/86 93 Nasal Cannula 3 10/07/16 15:50 95 18 128/87 94 Nasal Cannula 3 10/07/16 15:40 36.8 97 17 118/84 94 Nasal Cannula 3 10/07/16 15:30 95 16 131/89 95 Nasal Cannula 3 10/07/16 15:20 96 16 116/84 99 Mask 10 10/07/16 15:10 101 12 135/84 99 Mask 10 10/07/16 15:04 36.7 100 21 138/85 98 Mask 10 10/07/16 11:40 37.4 99 12 138/90 93 Room Air 10/07/16 11:24 103 16 138/82 94 10/07/16 11:18 103 16 138/82 94 Room Air General Appearance: WD/WN, no apparent distress Head: normocephalic, atraumatic Neck: trachea midline Respiratory/Chest: no respiratory distress, no accessory muscle use Abdomen: non distended, soft, + tenderness (appropriate post op), + pertinent finding (+ostomy, pink, no evidence of ischemia some serous drainage in colostomy bag, no stool. Midline incision open with packing present, no purulence or erythema) Incision(s): clean, no erythema, no drainage Laboratory Results: Results Past 24 Hours Test 10/07/16 15:25 10/08/16 05:20 Range/Units Sodium Level 137 138 136-145 mmol/L Potassium Level 3.9 3.6 3.5-5.1 mmol/L Chloride Level 103 103 98-107 mmol/L Carbon Dioxide Level 29 29 21-32 mmol/L Anion Gap 5.0 6.0 3-11 mmol/L Blood Urea Nitrogen 9 8 7-18 mg/dl Creatinine 0.99 1.10 0.60-1.40 mg/dl Estimated GFR () 104.7 92.2 Estimated GFR (Non- 90.3 79.5 BUN/Creatinine Ratio 8.6 7.5 10-20 Random Glucose 145 134 70-99 mg/dl Calcium Level 7.0 7.3 8.5-10.1 mg/dl White Blood Count 7.11 4.8-10.8 K/uL Red Blood Count 4.67 4.7-6.1 M/uL Hemoglobin 14.1 14.0-18.0 g/dL Hematocrit 40.7 42-52 % Mean Corpuscular Volume 87.2 80-100 fL Mean Corpuscular Hemoglobin 30.2 25-34 pg Mean Corpuscular Hemoglobin Concent 34.6 32-36 g/dl Platelet Count 111 130-400 K/uL Mean Platelet Volume 9.8 7.4-10.4 fL Neutrophils (%) (Auto) 89.9 % Lymphocytes (%) (Auto) 4.9 % Monocytes (%) (Auto) 5.1 % Eosinophils (%) (Auto) 0.0 % Basophils (%) (Auto) 0.0 % Neutrophils # (Auto) 6.39 1.4-6.5 K/uL Lymphocytes # (Auto) 0.35 1.2-3.4 K/uL Monocytes # (Auto) 0.36 0.11-0.59 K/uL Eosinophils # (Auto) 0.00 0-0.5 K/uL Basophils # (Auto) 0.00 0-0.2 K/uL RDW Standard Deviation 40.8 36.4-46.3 fL RDW Coefficient of Variation 12.7 11.5-14.5 % Immature Granulocyte % (Auto) 0.1 % Immature Granulocyte # (Auto) 0.01 0.00-0.02 K/uL Prothrombin Time 17.8 9.0-12.0 SECONDS Prothromb Time International Ratio 1.6 0.9-1.1 Est Creatinine Clear Calc Drug Dose 88.4 ml/min Microbiology Results 10/07/16 Gram Stain - Final, Resulted 10/07/16 Bacterial Culture - Preliminary, Resulted Gram Negative Bacilli Gram Negative Bacilli#2 Assessment & Plan POD # 1 s/p exploratory laparotomy with partial sigmoid colectomy and colostomy formation - vitals stable - no leukocytosis - abdominal pain appropriate post op, controlled with GARLAND MAKER - ostomy pink - midline incision clean and packing present without any erythema - adequate urine output - NGT Plan: Continue NPO Continue NGT to Low intermittent suction Await return of bowel function to advance diet Continue IV antibiotics Continue IV fluids at 125 mls/hr Continue Dilaudid GARLAND MAKER prn Continue IV zofran wound vac to be placed today Dr. Brown has seen and examined patient, agrees with assessment and plan.
[2016-10-08] MEDS ORDERED: PIPERACILL/TAZOBAC CONSULT ACTIVE PRN (13:45)
[2016-10-08] MEDS: SODIUM CHLORIDE 0.9% 1000ML 1,000 ML IV SCH (14:52)
[2016-10-08] MEDS: ENOXAPARIN 40 MG/0.4 ML SYR SQ SCH (15:48)
[2016-10-09] VITALS (8 sets, daily range): BP systolic 112–124; BP diastolic 64–77; PULSE 100–110; TEMP 36.5–37; O2SAT 88–96
[2016-10-09] MEDS: NSS + 20MEQ KCL 1000ML 1,000 ML IV SCH ×3 (01:16→16:52)
[2016-10-09] MEDS: HYDROmorphone HCL 0.5MG/ML 50 ML CASSETTE IV PRN ×4 (01:38→22:49)
[2016-10-09] MEDS: PIPERACILL/TAZOBAC IV 3.375 GM in DEXTROSE 5% 100ML 100 ML IV SCH ×3 (02:31→17:47)
[2016-10-09 08:10] LABS: HEMATOCRIT 34.4 % (42-52); MEAN CELL VOLUME 87.8 fL (80-100); MEAN CORPUSCULAR HEMOGLOBIN 29.8 pg (25-34); RED BLOOD COUNT 3.92 M/uL (4.7-6.1)
[2016-10-09 08:44] LABS: COMPLETE YES; EOS % 0.2 %; IG% 0.2 %; LYMPH % 6.7 %; LYMPH ABS # 0.28 K/uL (1.2-3.4); MEAN PLATELET VOLUME 9.3 fL (7.4-10.4); MONO % 5.5 %; NEUT % 87.4 %; PLATELET COUNT 99 K/uL (130-400)
--- NOTE | 2016-10-09 08:58 | Surgery Progress Note ---
Surgery Progress Note Date of Service Oct 09, 2016. Subjective Post OP Day: 2 + ambulating (in room only), + pain controlled, No bowel movement, No flatus, No nausea, No vomiting Objective Vital Signs: Date Time Temp Pulse Resp B/P Pulse Ox O2 Delivery O2 Flow Rate FiO2 10/09/16 08:00 Nasal Cannula 2.0 10/09/16 06:57 37.0 107 17 124/73 96 Room Air 10/09/16 05:51 93 Nasal Cannula 2.0 10/09/16 05:50 88 Room Air 10/09/16 03:18 36.9 102 16 112/64 95 Nasal Cannula 2.0 10/09/16 00:00 Nasal Cannula 2.0 10/08/16 22:47 37.7 109 16 104/74 95 Nasal Cannula 2.0 10/08/16 18:47 35.3 107 18 129/83 96 Nasal Cannula 2.0 10/08/16 15:30 97 Nasal Cannula 2.0 10/08/16 14:52 34.8 103 16 118/74 97 Nasal Cannula 2.0 10/08/16 11:35 36.6 85 15 121/67 96 Nasal Cannula 2.0 Physical Exam: HANNY drainage (35 cc yesterday, 20 cc lsat shift, serosanguinous) Abdomen: normal bowel sounds, non distended, soft Incision(s): clean, dry, intact, no erythema, findings (Wound vac in place) Laboratory Results: Results Past 24 Hours Test 10/09/16 07:34 Range/Units White Blood Count 4.00 4.8-10.8 K/uL Red Blood Count 3.92 4.7-6.1 M/uL Hemoglobin 11.7 14.0-18.0 g/dL Hematocrit 34.4 42-52 % Mean Corpuscular Volume 87.8 80-100 fL Mean Corpuscular Hemoglobin 29.8 25-34 pg Mean Corpuscular Hemoglobin Concent 34.0 32-36 g/dl Platelet Count 99 130-400 K/uL Mean Platelet Volume 9.3 7.4-10.4 fL Neutrophils (%) (Auto) 87.4 % Lymphocytes (%) (Auto) 6.7 % Monocytes (%) (Auto) 5.5 % Eosinophils (%) (Auto) 0.2 % Basophils (%) (Auto) 0.0 % Neutrophils # (Auto) 3.62 1.4-6.5 K/uL Lymphocytes # (Auto) 0.28 1.2-3.4 K/uL Monocytes # (Auto) 0.23 0.11-0.59 K/uL Eosinophils # (Auto) 0.01 0-0.5 K/uL Basophils # (Auto) 0.00 0-0.2 K/uL RDW Standard Deviation 40.9 36.4-46.3 fL RDW Coefficient of Variation 12.7 11.5-14.5 % Immature Granulocyte % (Auto) 0.2 % Immature Granulocyte # (Auto) 0.01 0.00-0.02 K/uL Culture results noted. E. coli sensitive to Zosyn. Await sensitivities for Pseudomonas Assessment & Plan Peristalsis returning Can D/C NGT, sips of clears D/C [place] Increase ambulation
[2016-10-09 09:00] LABS: BUN/CREATININE RATIO 8.6 (10-20); CALCIUM 7.5 mg/dl (8.5-10.1); CREATININE 0.69 mg/dl (0.60-1.40); POTASSIUM 4.4 mmol/L (3.5-5.1)
[2016-10-09] MEDS ORDERED: NURSING VERBAL MED ORDER ONE (09:30)
[2016-10-09] MEDS: SODIUM CHLORIDE 0.9% 1000ML 1,000 ML IV SCH (12:31)
[2016-10-09] MEDS: ONDANSETRON INJ 2 MG/ML 2 ML VIAL IV PRN (14:27)
[2016-10-09] MEDS: ENOXAPARIN 40 MG/0.4 ML SYR SQ SCH (16:04)
[2016-10-10] MEDS: NSS + 20MEQ KCL 1000ML 1,000 ML IV SCH ×3 (00:40→19:14)
[2016-10-10] MEDS: PIPERACILL/TAZOBAC IV 3.375 GM in DEXTROSE 5% 100ML 100 ML IV SCH ×3 (01:54→19:13)
[2016-10-10 03:19] VITALS: BP 114/74; PULSE 94; TEMP 36.6; O2SAT 93
[2016-10-10] MEDS: HYDROmorphone HCL 0.5MG/ML 50 ML CASSETTE IV PRN (06:54)
[2016-10-10 06:57] LABS: HEMATOCRIT 33.1 % (42-52); MEAN CELL VOLUME 86.9 fL (80-100); MEAN CORPUSCULAR HEMOGLOBIN 29.7 pg (25-34); MEAN CORPUSCULAR HGB CONC 34.1 g/dl (32-36); MEAN PLATELET VOLUME 9.3 fL (7.4-10.4); PLATELET COUNT 120 K/uL (130-400); RED BLOOD COUNT 3.81 M/uL (4.7-6.1); WHITE BLOOD COUNT 4.09 K/uL (4.8-10.8)
[2016-10-10 07:17] VITALS: BP 126/69; PULSE 101; TEMP 36.4; O2SAT 94
[2016-10-10 07:23] LABS: CREATININE 0.64 mg/dl (0.60-1.40)
[2016-10-10 07:39] LABS: BASO % 0.2 %; BASO ABS # 0.01 K/uL (0-0.2); COMPLETE YES; EOS % 0.7 %; IG% 0.7 %; LYMPH % 12.5 %; LYMPH ABS # 0.51 K/uL (1.2-3.4); MONO % 10.5 %; NEUT % 75.4 %
[2016-10-10] MEDS ORDERED: MoRPHine SULFATE 4 MG/ML 1 ML CARP\\VIAL IV PRN (08:37)
[2016-10-10] MEDS ORDERED: MoRPHine SULFATE 2 MG/ML CARP IV PRN ×2 (08:45)
--- NOTE | 2016-10-10 08:48 | Surgery Progress Note ---
Surgery Progress Note Date of Service Oct 10, 2016. Subjective Post OP Day: 3 (s/p ex lap, partial sigmoid resection and colostomy formation) + ambulating (3 laps every shift), + bowel movement (liquid stool in ostomy started early this morning), + feeling well, + flatus, + pain controlled, No SOB , No chest pain, No complaints, No nausea, No vomiting Objective Vital Signs: Date Time Temp Pulse Resp B/P Pulse Ox O2 Delivery O2 Flow Rate FiO2 10/10/16 07:20 Room Air 10/10/16 07:17 36.4 101 18 126/69 94 Room Air 10/10/16 03:19 36.6 94 16 114/74 93 Room Air 10/09/16 23:15 Room Air 10/09/16 22:58 36.5 100 19 121/70 94 Room Air 10/09/16 18:55 36.9 104 18 117/73 92 Room Air 10/09/16 15:15 Room Air 10/09/16 15:00 36.5 110 18 114/77 91 Room Air 10/09/16 10:11 93 Room Air Physical Exam: HANNY drainage (minimal serosanguienous drainage ~ 10 cc) General Appearance: WD/WN, no apparent distress Head: normocephalic, atraumatic Neck: supple, trachea midline Respiratory/Chest: lungs clear, normal breath sounds, no respiratory distress, no accessory muscle use Cardiovascular: regular rate, rhythm, no murmur Abdomen: non distended, soft, + tenderness (appropriate tenderness at incision site), + pertinent finding (+ ostomy, pink and functioning with liquid brown stool and flatus in bag) Incision(s): clean, dry, intact, no erythema, no drainage, findings (+ wound vac present and intact) Laboratory Results: Results Past 24 Hours Test 10/10/16 06:20 Range/Units White Blood Count 4.09 4.8-10.8 K/uL Red Blood Count 3.81 4.7-6.1 M/uL Hemoglobin 11.3 14.0-18.0 g/dL Hematocrit 33.1 42-52 % Mean Corpuscular Volume 86.9 80-100 fL Mean Corpuscular Hemoglobin 29.7 25-34 pg Mean Corpuscular Hemoglobin Concent 34.1 32-36 g/dl Platelet Count 120 130-400 K/uL Mean Platelet Volume 9.3 7.4-10.4 fL Neutrophils (%) (Auto) 75.4 % Lymphocytes (%) (Auto) 12.5 % Monocytes (%) (Auto) 10.5 % Eosinophils (%) (Auto) 0.7 % Basophils (%) (Auto) 0.2 % Neutrophils # (Auto) 3.08 1.4-6.5 K/uL Lymphocytes # (Auto) 0.51 1.2-3.4 K/uL Monocytes # (Auto) 0.43 0.11-0.59 K/uL Eosinophils # (Auto) 0.03 0-0.5 K/uL Basophils # (Auto) 0.01 0-0.2 K/uL RDW Standard Deviation 41.1 36.4-46.3 fL RDW Coefficient of Variation 12.8 11.5-14.5 % Immature Granulocyte % (Auto) 0.7 % Immature Granulocyte # (Auto) 0.03 0.00-0.02 K/uL Red Blood Cell Morphology Unremarkable Creatinine 0.64 0.60-1.40 mg/dl Est Creatinine Clear Calc Drug Dose 152.0 ml/min Estimated GFR () 135.1 Estimated GFR (Non- 116.6 Assessment & Plan POD # 3 s/p exploratory laparotomy with partial sigmoid colectomy and colostomy formation - vitals stable - no leukocytosis - abdominal pain appropriate post op, controlled - ostomy pink and functioning, liquid stool output - midline incision clean and wound vac present - adequate urine output Plan: Advance diet to clear liquids Continue IV antibiotics Decrease IV fluids to 100 mls/hr D/C [facility] , start breakthrough IV Morphine as needed for pain and po percocet Continue IV zofran Continue current wound vac settings Continue ambulation Dr. Sellers has seen and examined patient, agrees with above assessment and plan.
[2016-10-10 15:22] VITALS: BP 123/84; PULSE 95; TEMP 36.6; O2SAT 94
[2016-10-10] MEDS: ENOXAPARIN 40 MG/0.4 ML SYR SQ SCH (16:01)
[2016-10-10] MEDS: ONDANSETRON INJ 2 MG/ML 2 ML VIAL IV PRN (16:08)
[2016-10-10] MEDS: OXYCODONE/ACETAMINOPHEN 5-325 TAB PO PRN (19:13)
[2016-10-10 22:57] VITALS: BP 119/79; PULSE 85; TEMP 36.7; O2SAT 98
[2016-10-11] MEDS: PIPERACILL/TAZOBAC IV 3.375 GM in DEXTROSE 5% 100ML 100 ML IV SCH ×3 (01:46→18:22)
[2016-10-11] MEDS: NSS + 20MEQ KCL 1000ML 1,000 ML IV SCH ×2 (05:40→19:09)
[2016-10-11 07:30] VITALS: BP 126/82; PULSE 78; O2SAT 96
[2016-10-11] MEDS: OXYCODONE/ACETAMINOPHEN 5-325 TAB PO PRN ×3 (10:38→23:40)
--- NOTE | 2016-10-11 11:30 | Surgery Progress Note ---
Surgery Progress Note Date of Service Oct 11, 2016. Subjective Post OP Day: 4 + ambulating, + bowel movement (bowel movement via rectum, small + ostomy output liquid stool), + diet (tolerating clear liquids), + feeling well, + flatus, + nausea (slight nausea), No SOB, No chest pain, No vomiting Objective Vital Signs: Date Time Temp Pulse Resp B/P Pulse Ox O2 Delivery O2 Flow Rate FiO2 10/11/16 07:30 78 18 126/82 96 Room Air 10/11/16 07:20 Room Air 10/10/16 23:45 Room Air 10/10/16 22:57 36.7 85 18 119/79 98 Room Air 10/10/16 15:30 Room Air 10/10/16 15:22 36.6 95 18 123/84 94 Room Air General Appearance: WD/WN, no apparent distress Head: normocephalic, atraumatic Respiratory/Chest: lungs clear, normal breath sounds, no respiratory distress, no accessory muscle use Cardiovascular: regular rate, rhythm, no murmur Abdomen: non distended, soft, + tenderness (midline incision, appropriate post op), + pertinent finding (+ ostomy with liquid brown stool and air present) Incision(s): no erythema, no drainage Assessment & Plan POD # 4 s/p exploratory laparotomy with partial sigmoid colectomy and colostomy formation - vitals stable - abdominal pain appropriate post op, controlled - ostomy pink and functioning, liquid stool output - midline incision clean and wound vac present - adequate urine output Plan: Advance diet to full liquids if tolerates well today, soft diet for dinner Continue IV antibiotics Decrease IV fluids to 63 mls/hr Continue IV Morphine as needed for pain and po Percocet Continue IV zofran Continue current wound vac settings Continue ambulation Hopeful discharge tomorrow Will be discharged with po antibiotics and po Percocet and Zofran Follow-up in surgical office with Dr. Brown in 1 week Has home health set up upon discharge Dr. Sellers has seen and examined patient, agrees with assessment and plan.
[2016-10-11] MEDS ORDERED: ONDA4TAB10 SL (12:37)
[2016-10-11] MEDS ORDERED: OXYC-57 PO (12:37)
[2016-10-11] MEDS ORDERED: CIPR-255 PO (12:37)
--- NOTE | 2016-10-11 12:42 | Discharge Instructions ---
Discharge Instructions Date of Service Oct 11, 2016. Admission Reason for Admission: Diverticulitis Of Intestine With Perforation Discharge Discharge Diagnosis / Problem: Acute diverticulitis with perforation, s/p partial sigmoid colectomy Discharge Goals Goal(s): Decrease discomfort, Improve function Activity Recommendations Activity Limitations: as noted below No heavy lifting over 10 pounds for at least 6 weeks or until cleared by surgeon No strenuous activity until cleared by surgeon No returning to work until follow-up with Dr. Brown No driving while taking narcotic pain medication or until you are pain free (at least 2 weeks of no driving) No submerging underwater You may sponge bath . Instructions / Follow-Up Instructions / Follow-Up Follow-up with Dr. Brown in one week Please call office at [phone] to make an appointment for next Friday Walking is encouraged to prevent blood clots. You will have home health coming into your home helping with wound care and ostomy care Current Hospital Diet Patient's current hospital diet: Full Liquid Diet Discharge Diet Recommended Diet: Low Fiber Diet Procedures Procedures Performed: Exploratory Laparotomy, Partial Sigmoid Resection, Formation of Colostomy Pending Studies Studies pending at discharge: no Medical Emergencies . Who to Call and When: Medical Emergencies: If at any time you feel your situation is an emergency, please call 911 immediately. . Non-Emergent Contact Non-Emergency issues call your: Primary Care Provider, Surgeon Call Non-Emergent contact if: you have a fever, temperature is above 101.5, your pain is not controlled, your pain is worsening, wound has increased drainage, wound has increased redness, wound has increased pain . "Provider Documentation" section prepared by Eunice Bates. . VTE Core Measure Inpt VTE Proph given/why not?: Enoxaparin (Lovenox)SQ, SCD's [place] Drug Monitoring Program Search Results: patient reviewed within database, no issues identified
[2016-10-11 15:30] VITALS: BP 120/80; PULSE 80; TEMP 36.6; O2SAT 95
[2016-10-11] MEDS: ENOXAPARIN 40 MG/0.4 ML SYR SQ SCH (16:43)
[2016-10-11 23:15] VITALS: BP 111/72; PULSE 70; TEMP 36.6; O2SAT 98
[2016-10-12] MEDS: PIPERACILL/TAZOBAC IV 3.375 GM in DEXTROSE 5% 100ML 100 ML IV SCH ×2 (02:25→10:23)
[2016-10-12 07:45] VITALS: O2SAT 98
[2016-10-12 07:50] VITALS: BP 112/80; PULSE 80; TEMP 36.7; O2SAT 95
[2016-10-12] MEDS: OXYCODONE/ACETAMINOPHEN 5-325 TAB PO PRN ×2 (08:15→12:08)
[2016-10-12] MEDS: ONDANSETRON INJ 2 MG/ML 2 ML VIAL IV PRN (08:15)
--- NOTE | 2016-10-12 08:33 | SURGERY PROGRESS NOTE ---
DATE: 10/12/2016 DATE: 10/12/2016. Covering for Dr. Brown. Damian is approximately 5 days status post Corrina procedure. Instructions have been written by the primary service to discharge him today. His last vitals showed a temperature of 36.6, pulse 70, respirations 16, blood pressure 111/72, O2 sats 98 on room air. I\T\O he continues to have some drainage from his Carl drain. He had 10 mL overnight. His abdomen is completely benign. The ostomy is very viable and has good output. He is passing some flatus through the rectum. At this point, he certainly can be discharged. The VAC system is intact and he is instructed to see Dr. Brown this week. Instructions as stated had been written by their service.
[2016-10-12] MEDS: NSS + 20MEQ KCL 1000ML 1,000 ML IV SCH (10:22)
[2016-10-12 10:40] VITALS: BP 112/80; PULSE 80; TEMP 36.7; O2SAT 95
--- NOTE | 2016-10-21 13:55 | Discharge Summary ---
Discharge Summary Dates Admission Date / Time: Oct 07, 2016 at 15:00 Discharge Date: Oct 12, 2016 Dispostion / Condition Discharge Disposition: Home with services Condition at Discharge: Good Principal Diagnosis (1) Diverticulitis of intestine with perforation Consultations / Procedures Consultations: None Procedures: Exploratory laparotomy, partial sigmoid resection and formation of colostomy with Main's pouch Pending Studies / Follow-Up None Medication Reconciliation New Medications: Ondasetron Odt (Zofran Odt) 4 Mg Tab 4 MG SL Q6H PRN for Nausea, #30 TAB Oxycodone/Acetaminophen 5MG/325MG (Percocet 5MG/325MG) Tab 1 TABLET PO Q4H PRN for Pain, #30 TAB Admission HPI Per the Admitting provider: Damian is a pleasant 46 year-old male who presented to the emergency room via ambulance on 10/07/2016 complaining of severe generalized abdominal pain that woke him up that morning. Stated he had chills, sweating and sore throat on Friday10/04/2016 however denied of any abdominal pain at that time. Stated he was severely shivering with chills and using 6 blankets to keep warm. Sore throat and chills and sweating seemed to resolve and then woke up with the pain on Friday morning. Has never had similar abdominal pain in the past. Stated he could barely move due to the abdominal pain, every step caused pain. Did not feel he could drive to the hospital himself because of the pain. Had some dry heaves and vomiting. Denied of any changes in his bowel habits recently, diarrhea, constipation, blood in stools, black/tarry stools, mucous in stools, unintentional weight loss, dysuria, blood in urine, air in urine. Stated he felt as though he had to urinate but could not and abdomen felt bloated. Stated the pain is better with his knees up. Damian had no leukocytosis however a fever of 38.[address] scan of the abdomen and pelvis with contrast showed inflammatory change in the pelvis with findings of acute diverticulitis of the sigmoid colon with pneumoperitoneum suggest acute diverticulitis with perforation and possible formation of abscess in the pelvis. Damian states he has never been diagnosed with diverticulosis or had any episodes of diverticulitis in the past. Hospital Course (1) Diverticulitis of intestine with perforation Damian was taken to the operating room and underwent exploratory laparotomy, partial sigmoid resection, formation of colostomy via Main's procedure. Damian tolerated procedure well and was transferred to PACU and then Med/Surg floor in stable condition. He was started on IV fluids at 125 mls/hr, IV antibiotics Zosyn 3.375 gm IV q 8 hours, IV Zofran, Dilaudid MARINE EXTENSION AGENT, SCDs, and Lovenox. NGT on Low intermittent suction , HANNY drain to bulb suction, Mcintyre to gravity and kept NPO. Midline laparotomy incision was kept open given purulent peritonitis and packed with saline soaked gauze. POD # 1 patient was feeling okay. Pain was much improved compared to pre-operatively. Pain controlled with MARINE EXTENSION AGENT. Had some slight nausea but no vomiting. No Leukocytosis. NGT , HANNY, and Mcintyre continued. Wound vac consult for midline incision. POD # 2 patient feeling better. Ambulated hallway. Pain controlled. Minimal NGT output. NGT and Mcintyre were discontinued and diet was advanced to ice chips. POD # 3 patient had ostomy output , patient was walking the hallways 3 laps every shift , pain controlled. The MARINE EXTENSION AGENT was discontinued, IV morphine and PO Percocet were started prn pain, Diet was advanced to clear liquids. POD # 4 diet was advanced to full liquids and low fiber diet evening of POD # 4. POD # 5 patient was discharged home with home health care for ostomy and wound vac care. IV antibiotics were continued throughout hospital stay and patient discharged on oral Cipro/Flagyl. Pain was controlled and minimal. Overall hospital stay was uneventful. Discharge Instructions As given to patient Copies To Primary Care Provider: No Doctor, Assigned. Problem Qualifiers (1) Diverticulitis of intestine with perforation: Diverticulitis site: large intestine Diverticulitis bleeding: without bleeding Qualified Codes: K57.20 - Diverticulitis of large intestine with perforation and abscess without bleeding
--- NOTE | 2016-10-24 12:47 | History and Physical: Surg Cnt ---
History & Physical Date October 24, 2016. THIS IS A LATE ENTRY FOR 10/07/2016 (I DID A SURGICAL CONSULT INSTEAD OF A HISTORY AND PHYSICAL) Chief Complaint ABDOMINAL PAIN History of Present Illness Damian is a pleasant 46 year-old male who presented to the emergency room via ambulance this morning complaining of severe generalized abdominal pain that woke him up this morning. States he had chills, sweating and sore throat on Friday however denied of any abdominal pain at the time. States he was severely shivering with chills and using 6 blankets to keep warm. Sore throat and chills and sweating seemed to resolve and then woke up with the pain this morning. Has never had similar abdominal pain in the past. States he could barely move this morning due to the abdominal pain, every step caused pain. Did not feel he could drive to the hospital himself because of the pain. Had some dry heaves and vomiting this morning. Denies of any changes in his bowel habits recently, diarrhea, constipation, blood in stools, black/tarry stools, mucous in stools, unintentional weight loss, dysuria, blood in urine, air in urine. States he feels as though he has to urinate but cannot and abdomen feels bloated. States the pain is better with his knees up. Damian had no leukocytosis however a fever of 38.[address] scan of the abdomen and pelvis with contrast showed inflammatory change in the pelvis with findings of acute diverticulitis of the sigmoid colon with pneumoperitoneum suggest acute diverticulitis with perforation and possible formation of abscess in the pelvis. Damian states he has never been diagnosed with diverticulosis or had any episodes of diverticulitis in the past. Past Medical/Surgical History Medical Problems: (1) Diverticulitis of intestine with perforation (2) No active medical problems Additional History Hepatic Disease: No Endocrine Disorder: No Kidney Disease: No Hypertension: No Heart Disease: No Bleeding Tendencies: No Infectious Diseases: No Allergies Coded Allergies: No Known Allergies (Unverified , 10/07/16) Home Medications Scheduled PRN Ondasetron Odt (Zofran Odt), 4 MG SL Q6H PRN for Nausea Oxycodone/Acetaminophen 5MG/325MG (Percocet 5MG/325MG), 1 TABLET PO Q4H PRN for Pain Physical Examination Skin: warm/dry, no rash Eyes: sclerae normal Head: normocephalic, atraumatic Respiratory/Chest: lungs clear, normal breath sounds, no respiratory distress Cardiovascular: no edema, no murmur, + pertinent finding (Tachycardic) Abdomen / GI: + pertinent finding (tenderness throughout abdomen, guarding and rebound. No peritonitis or rigidity. Slight distention) Extremities: normal inspection, normal range of motion Neurologic/Psych: alert, oriented x 3 Diagnosis ABDOMEN AND PELVIS CT WITH IV AND ORAL CONTRAST CT DOSE: 300.22 mGy.cm HISTORY: mid abd pain TECHNIQUE: Multiaxial CT images of the abdomen and pelvis were performed following the use of intravenous and oral contrast. COMPARISON STUDY: None. FINDINGS: Mild dependent changes seen within the lung bases. Moderate pneumoperitoneum. No suspicious lytic or blastic osseous lesions. The spleen, gallbladder, liver, adrenal glands, and kidneys are unremarkable. Possible pancreas divisum. The pancreas enhances normally. No retroperitoneal lymphadenopathy. The bladder is unremarkable. Multiple colonic diverticula. Inflammatory change seen within the pelvis surrounding the small bowel and the mid sigmoid colon. Therefore, these findings favor acute diverticulitis. This likely results in the free air due to the perforation. Normal caliber appendix. Thickened loops of small bowel from the deep pelvis may be reactive. No evidence for bowel obstruction. Few scattered small partially loculated fluid collections seen within the deep pelvis, left lower quadrant, and mid abdomen/pelvis. The mid abdominal/pelvic collection measures 2.3 cm. These may represent small developing abscesses. IMPRESSION: 1. Moderate pneumoperitoneum. The exact location is difficult to identify but is likely due to perforated acute sigmoid diverticulitis. 2. There are few small partially loculated fluid collection seen within the pelvis suggestive of developing abscesses. 3. Thickened loops of small bowel within the deep pelvis may be reactive to the adjacent inflammatory change. No evidence for bowel obstruction. 4. Additional findings as described above. 5. These findings were discussed with Dr. Beverly at 10:00 AM on 10/07/2016. ASSESSMENT: Acute Diverticulitis with Perforation and Pneumoperitoneum -no leukocytosis - febrile on arrival to ED - CT scan showing free air and inflammatory process in the pelvis surrounding small bowel and colon likely acute diverticulitis and possible abscess formation - Abdomen soft, no peritonitis however involuntary guarding present throughout abdomen Plan of Treatment Plan: Plan to take patient back to operating room for exploratory laparotomy, colon resection with colostomy formation and placement of wound vac. Patient was informed of the indications of the procedure as well as the risks including but not limited to bleeding, infection, injury to surrounding organs/tissues, ureter injury, wound infection, cardiopulmonary complications, blood clots, and . Patient understands and informed consent obtained He will be admitted to the med/surg floor post op most likely for 5-7 days He will be placed on antibiotics pre-operatively and post-operatively Dr. Brown has seen and examined patient, agrees with above stated findings and treatment plan. (Eunice Bates ., MARISA) I interviewed and examined this patient and reviewed the lab values and the radiology images and reports and I agree with the above note. 46 y/o with chills for the last 3 days who awoke wihth severe abdominal pain this AM. Pain increased with motion. Diffuse tenderness on exam with significant involuntary guarding. CT consistent with perforated diverticulitis with significant free air. Discussed options with patient but feel surgical intervention is best option. I explained the procedure including the formation of a colostomy and leaving the skin open and the use of a wound vac. I explained the possible complications and answered his questions and he has signed a consent form. (Felipe Brown M.D.)
[2016-12-20] MEDS ORDERED: IBUP-1050 PO (08:15)
== END 2016-10-12 12:25 | disposition home health service (06) | DRG 330 ==
LOC: ENRESERVTM → ENRESERVDT → EDBD 06:36 → C.EDB 06:37 → C.MSN 15:00
PROVIDERS: ADMIT Surgery; ATTEND Surgery
PROC: 0DBN0ZX Excision of Sigmoid Colon, Open Approach, Diagnostic (ICD-10-PCS; principal; 2016-10-07 16:00)
PROC: 0D1N0Z4 Bypass Sigmoid Colon to Cutaneous, Open Approach (ICD-10-PCS; principal; 2016-10-07 16:00)
DX: K57.20 Diverticulitis of large intestine with perforation and abscess without bleeding (principal); E87.6 Hypokalemia; B96.20 Unspecified Escherichia coli [E. coli] as the cause of diseases classified elsewhere; B96.5 Pseudomonas (aeruginosa) (mallei) (pseudomallei) as the cause of diseases classified elsewhere

== ENCOUNTER 2017-01-06 08:22 | Inpatient (IN) | payer OTHER ==
[2016-12-20 08:00] VITALS: BMI 23.0
--- NOTE | 2016-12-20 08:30 | PAT Medication Instructions ---
Service Date Dec 20, 2016. Current Home Medication List Ibuprofen (Advil), 200-600 MG PO Q4H PRN for Pain Medication Instructions For Your Scheduled Surgery - Hold the following medications the morning of surgery: Ibuprofen (Advil), 200-600 MG PO Q4H PRN for Pain nothing to eat or drink after midnight If you have any questions please call us at [phone] or [phone] or [phone]
[2017-01-06] VITALS (8 sets, daily range): BP systolic 118–129; BP diastolic 72–88; PULSE 58–94; TEMP 36.3–36.8; O2SAT 95–99; Ht 180.3 cm; Wt 77.2 kg
[~2017-01-06] VITALS: Ht 180.3 cm; Wt 77.2 kg
[~2017-01-06 08:22] MED LIST changes: +CEFOXITIN IV 2,000 MG in DEXTROSE 5% 50ML 50 ML IV SCH; -CEPH500C PO; +IBUP-1050 PO; +LACTATED RINGER'S 1000ML 1,000 ML IV SCH; -LRT5 PO
[2017-01-06] MEDS ORDERED: FENTANYL CITRATE INJ 50 MCG/1 ML 2 ML VIAL ONE ×5 (09:53→13:34)
[2017-01-06] MEDS ORDERED: MIDAZOLAM HCL 1 MG/ML 2ML VIAL ONE (09:53)
[2017-01-06] MEDS ORDERED: CEFOXITIN SOD 2 GM VIAL ONE (10:37)
[2017-01-06] MEDS ORDERED: MEPERIDINE HCL 25 MG/ML CARP IV PRN (10:45)
[2017-01-06] MEDS ORDERED: ATROPINE SULFATE 0.1 MG/ML 5ML SYR IV PRN (10:45)
[2017-01-06] MEDS ORDERED: ONDANSETRON INJ 2 MG/ML 2 ML VIAL IV PRN (10:45)
[2017-01-06] MEDS ORDERED: EpHEDrine SULFATE INJ 50 MG/ML AMP IV PRN (10:45)
[2017-01-06] MEDS ORDERED: HYDROmorphone INJ 1 MG/ML SYR IV PRN (10:45)
[2017-01-06] MEDS ORDERED: LABETALOL HCL IV 5 MG/ML 20ML IV PRN (10:45)
--- NOTE | 2017-01-06 10:52 | History & Physical Bridge Note ---
H&P Re-Evaluation Bridge Note: I have examined the patient, reviewed the History & Physical and in the interval since the performance of the History & Physical I have noted the following changes of clinical significance: No changes noted
[2017-01-06] MEDS ORDERED: SCOPOLAMINE 1.5 MG TDSY TD ONE (10:57)
[2017-01-06] MEDS ORDERED: HYDROmorphone INJ 2 MG/ML SYR/VIAL ONE (11:18)
[2017-01-06] MEDS ORDERED: DEXAMETHASONE SOD INJ 4 MG/ML VIAL ONE (12:41)
[2017-01-06] MEDS ORDERED: LIDOCAINE HCL 2% 2 ML VIAL (20MG/ML) ONE (12:41)
[2017-01-06] MEDS ORDERED: NEOSTIGMINE METHYLSULFATE 5 MG/5 ML SYR ONE (12:41)
[2017-01-06] MEDS ORDERED: PROPOFOL IV EMULSION 10 MG/ML 20 ML VIAL IV ONE ×2 (12:41→13:22)
[2017-01-06] MEDS ORDERED: ONDANSETRON INJ 2 MG/ML 2 ML VIAL ONE (12:41)
[2017-01-06] MEDS ORDERED: ROCURONIUM BROMIDE 10 MG/ML 5 ML VIAL ONE (12:41)
[2017-01-06] MEDS ORDERED: GLYCOPYRROLATE INJ 0.2 MG/ML VIAL ONE (12:41)
[2017-01-06] MEDS ORDERED: NALOXONE HCL 0.4 MG/1 ML VIAL/CARP IV PRN (14:45)
--- NOTE | 2017-01-06 14:45 | [facility] Post Operative Brief Note ---
Immediate Operative Summary Operative Date Jan 06, 2017. Pre-Operative Diagnosis Presence of colostomy Post-Operative Diagnosis Presence of colostomy Procedure(s) Performed Reversal Colostomy Surgeon Dr. Brown Furniture Assembler Surgeon(s) Dr. Kyra Avalos Estimated Blood Loss 200cc Findings See dictation Specimens A: Proximal rectum B: Proximal colon Drains None Anesthesia General Complication(s) None Disposition Recovery Room / PACU
[2017-01-06] MEDS: FENTANYL CITRATE INJ 50 MCG/1 ML 2 ML VIAL IV PRN ×6 (14:56→15:27)
[2017-01-06] MEDS: HYDROmorphone HCL 0.5MG/ML 50 ML CASSETTE IV PRN ×3 (15:29→22:52)
--- NOTE | 2017-01-06 15:43 | Anesthesiology Progress Note ---
Anesthesia Post Op Note Date & Time Jan 06, 2017 at 15:42 Vital Signs Vital Signs Past 12 Hours Date Time Temp Pulse Resp B/P (MAP) Pulse Ox O2 Delivery O2 Flow Rate FiO2 01/06/17 15:35 68 11 158/80 96 Nasal Cannula 2 01/06/17 15:25 62 12 122/78 97 Nasal Cannula 2 01/06/17 15:15 63 17 108/68 98 Mask 10 01/06/17 15:05 61 14 133/81 98 Mask 10 01/06/17 14:55 77 15 141/82 98 Mask 10 01/06/17 14:48 36.6 85 18 156/93 98 Mask 10 01/06/17 08:35 36.5 58 16 118/84 01/06/17 08:35 36.5 58 16 118/84 (95) 97 Room Air 01/06/17 08:35 97 Room Air Notes Mental Status: alert / awake / arousable, participated in evaluation Pt Amnestic to Procedure: Yes Nausea / Vomiting: adequately controlled Pain: adequately controlled Airway Patency, RR, SpO2: stable & adequate BP & HR: stable & adequate Hydration State: stable & adequate Anesthetic Complications: no major complications apparent
[2017-01-06] MEDS: ONDANSETRON INJ 2 MG/ML 2 ML VIAL IV PRN (16:41)
[2017-01-06] MEDS: SODIUM CHLORIDE 0.9% 1000ML 1,000 ML IV SCH (16:48)
[2017-01-06] MEDS: ALUMINUM/MAGNESIUM SUSP 30 ML UDC NG SCH ×2 (17:44→20:47)
[2017-01-06] MEDS: D5W AND 1/2NSS + 20MEQ KCL 1,000 ML IV SCH (17:44)
[2017-01-06] MEDS: CEFOXITIN IV 2,000 MG in DEXTROSE 5% 50ML 50 ML IV SCH (18:21)
[2017-01-07] VITALS (8 sets, daily range): BP systolic 116–129; BP diastolic 70–82; PULSE 66–79; TEMP 36.6–36.9; O2SAT 96–98
[2017-01-07] MEDS: D5W AND 1/2NSS + 20MEQ KCL 1,000 ML IV SCH ×3 (01:01→16:52)
--- NOTE | 2017-01-07 01:02 | OPERATIVE REPORT ---
DATE OF OPERATION: 01/06/2017 PREOPERATIVE DIAGNOSIS: Presence of colostomy. POSTOPERATIVE DIAGNOSIS: Same. PROCEDURE: Reversal of sigmoid colostomy. SURGEON: Dr. Brown. BREWING TECHNICIAN: Kyra Muniz MD. FINDINGS: The sigmoid colon had no remaining diverticula. The distal pouch colon wall was normal as well. It was well vascularized. There was no tension on the anastomosis. The anastomosis was tested and was found to be intact. There were a few adhesions of the omentum to the anterior abdominal wall, but there were no bowel adhesions. There was adhesion of small bowel to the pouch. TECHNIQUE: The patient was given a general anesthetic and the area was prepped and draped in the usual sterile fashion. It must be pointed out that prior to prepping, the skin around the colostomy was cleansed with alcohol and a #1 silk was used as a pursestring to close off the colostomy. The colostomy was taken down first. An elliptical incision was made transversely around the colostomy and carried down through the subcutaneous tissue. The bowel and mesentery of the colon were taken down and away from the subcutaneous tissue down to the fascia and then away from the fascial muscle layers and peritoneum around the entire circumference, using blunt, sharp and cautery dissection, where appropriate, until it was completely freed. The vertical midline scar was then removed and the subcutaneous tissue was opened down to the fascia. The fascia was opened. I did extend the incision superiorly, inferiorly and especially, superiorly, to find an area of peritoneum that was virgin; so, there were no adhesions. The peritoneum was identified, grasped with 2 clamps, incised and the abdomen was entered. I placed my finger inside the abdomen to confirm that there was no small bowel adhesion to the anterior abdominal wall and then the abdominal wall was opened through all layers along the length of the skin incision. The omentum was dissected off the anterior abdominal wall and dissected off the bladder and away from the pouch until it was completely freed. Then the small bowel was seen and divided. A small serosal vent was created there, but there was no entering of the mucosa. The serosal vent was closed with interrupted 3-0 silk sutures. Once the entire pelvis was freed, I brought out the colostomy back into the abdomen and placed a Bookwalter retractor. The pouch was then mobilized away from the lateral pelvic wall at the line of Toldt. Additional mesentery was taken down until the bowel did free it down to the sacral promontory. That mesentery was divided using a clamp, clamp, divide and ligate technique. Once I was down to bowel, where there were no tenia, indicating the rectum, the posterior mesentery and lateral stalks were divided away from the bowel using a clamp, clamp, divide and ligate technique, which then allowed me to divide the bowel with a TA stapler. The proximal bowel was then addressed. The staple line was removed and the sizers were used. A 28 EEA was chosen. The anvil was placed intraluminally and the bowel was then closed with a TA stapler again. The fat around the bowel wall at that point was away from the serosa, using a clamp, clamp, divide and ligate technique. The trocar was then used to protrude the anvil out of the bowel anterior to the staple line. That allowed for complete exposure of the serosa. The anal canal was dilated. I attempted to pass the stapling device, but could not. There was some tenting on the right lateral wall that was divided, which allowed it to go further. I then passed a dilator, which then allowed the stapler to pass up to the pouch and staple line. The trocar from there was deployed, anterior to the staple line. The anvil was attached. The anvil was withdrawn into the stapler and the bowel was approximated until the green was seen within the window of the stapler. While doing that, I made sure that there were no intervening tissues around the staple line. The stapler was fired, opened 2-1/2 turns and removed with ease. There was no tension on the anastomosis, which was intact. The pelvis was filled with saline and air was injected. There was no leaking. The area had been inspected for hemostasis and there was no bleeding. The omentum was brought back down over the anterior surface of the small bowel below the incision and the NG tube was checked and was in good position. The fascia of the vertical midline incision was closed with a running #1 PDS and the fascia of the colostomy site was closed with interrupted [id number] sutures of #1 PDS. The skin of the vertical midline incision was closed with soham after mobilizing the skin. The skin of the transverse incision was closed with 2 soham allowing for a gapping. The estimated blood loss was 200 mL. Sponge, needle and instrument counts were correct prior to closure. The patient tolerated the surgical procedure without complication and was transferred to recovery. I attest to the content of the Intraoperative Record and any orders documented therein. Any exception s are noted below.
[2017-01-07] MEDS: CEFOXITIN IV 2,000 MG in DEXTROSE 5% 50ML 50 ML IV SCH ×2 (01:09→09:27)
[2017-01-07] MEDS ORDERED: NURSING VERBAL MED ORDER ONE ×2 (06:15→06:45)
[2017-01-07] MEDS ORDERED: DiphenhydrAMINE HCL 50 MG/ML VIAL IV ONE (07:00)
[2017-01-07] MEDS: HYDROmorphone HCL 0.5MG/ML 50 ML CASSETTE IV PRN ×4 (07:12→22:50)
[2017-01-07 07:44] LABS: INR 1.2 (0.9-1.1); PARTIAL THROMBOPLASTIN RATIO 1.1; PROTHROMBIN TIME (PATIENT) 12.7 SECONDS (9.0-12.0)
[2017-01-07 07:45] LABS: COMPLETE YES; HEMATOCRIT 40.5 % (42-52); IG% 0.3 %; LYMPH % 3.5 %; LYMPH ABS # 0.62 K/uL (1.2-3.4); MEAN CELL VOLUME 87.3 fL (80-100); MEAN CORPUSCULAR HEMOGLOBIN 30.6 pg (25-34); MEAN CORPUSCULAR HGB CONC 35.1 g/dl (32-36); MONO % 9.6 %; NEUT % 86.6 %; PLATELET COUNT 190 K/uL (130-400); RED BLOOD COUNT 4.64 M/uL (4.7-6.1)
[2017-01-07 08:05] LABS: BUN/CREATININE RATIO 10.5 (10-20); CALCIUM 8.4 mg/dl (8.5-10.1); CREATININE 0.98 mg/dl (0.60-1.40); POTASSIUM 4.4 mmol/L (3.5-5.1)
[2017-01-07] MEDS: ALUMINUM/MAGNESIUM SUSP 30 ML UDC NG SCH ×4 (09:10→21:18)
[2017-01-07] MEDS: SODIUM CHLORIDE 0.9% 1000ML 1,000 ML IV SCH (13:47)
[2017-01-07] MEDS: ENOXAPARIN 40 MG/0.4 ML SYR SQ SCH (14:24)
--- NOTE | 2017-01-07 16:15 | Surgery Progress Note ---
Surgery Progress Note Date of Service Jan 07, 2017. Subjective Post OP Day: 1 + ambulating, + pain controlled, No bowel movement, No flatus, No nausea, No vomiting Objective Vital Signs: Date Time Temp Pulse Resp B/P (MAP) Pulse Ox O2 Delivery O2 Flow Rate FiO2 01/07/17 15:22 36.8 70 16 120/75 (90) 96 Room Air 01/07/17 12:00 36.7 66 16 118/82 (94) 98 Room Air 01/07/17 09:00 97 Room Air 01/07/17 08:13 36.6 72 16 122/80 (94) 97 Room Air 01/07/17 07:50 Room Air 01/07/17 03:31 36.8 66 16 129/79 (96) 98 Room Air 01/07/17 01:00 Room Air 01/06/17 23:20 36.8 64 16 121/81 (94) 97 Room Air 01/06/17 22:22 95 Room Air 01/06/17 19:12 36.4 75 18 118/72 (87) 98 Nasal Cannula 2.0 01/06/17 18:14 36.4 93 18 127/78 (94) 96 Nasal Cannula 2.0 01/06/17 17:17 36.3 94 18 129/86 (100) 99 Nasal Cannula 2.0 01/06/17 16:44 36.3 65 16 129/88 (102) 97 Nasal Cannula 2.0 01/06/17 16:15 97 Nasal Cannula 2.0 01/06/17 16:15 97 Nasal Cannula 2.0 Physical Exam: nasogastric drainage (50 cc postop yesterday, 250 cc first 2 shifts today) Abdomen: non distended, soft Incision(s): clean, dry, intact, no erythema Laboratory Results: Results Past 24 Hours Test 01/07/17 06:55 Range/Units White Blood Count 17.60 4.8-10.8 K/uL Red Blood Count 4.64 4.7-6.1 M/uL Hemoglobin 14.2 14.0-18.0 g/dL Hematocrit 40.5 42-52 % Mean Corpuscular Volume 87.3 80-100 fL Mean Corpuscular Hemoglobin 30.6 25-34 pg Mean Corpuscular Hemoglobin Concent 35.1 32-36 g/dl Platelet Count 190 130-400 K/uL Mean Platelet Volume 9.0 7.4-10.4 fL Neutrophils (%) (Auto) 86.6 % Lymphocytes (%) (Auto) 3.5 % Monocytes (%) (Auto) 9.6 % Eosinophils (%) (Auto) 0.0 % Basophils (%) (Auto) 0.0 % Neutrophils # (Auto) 15.24 1.4-6.5 K/uL Lymphocytes # (Auto) 0.62 1.2-3.4 K/uL Monocytes # (Auto) 1.69 0.11-0.59 K/uL Eosinophils # (Auto) 0.00 0-0.5 K/uL Basophils # (Auto) 0.00 0-0.2 K/uL RDW Standard Deviation 40.2 36.4-46.3 fL RDW Coefficient of Variation 12.6 11.5-14.5 % Immature Granulocyte % (Auto) 0.3 % Immature Granulocyte # (Auto) 0.05 0.00-0.02 K/uL Prothrombin Time 12.7 9.0-12.0 SECONDS Prothromb Time International Ratio 1.2 0.9-1.1 Activated Partial Thromboplast Time 28.0 21.0-31.0 SECONDS Partial Thromboplastin Ratio 1.1 Sodium Level 140 136-145 mmol/L Potassium Level 4.4 3.5-5.1 mmol/L Chloride Level 105 98-107 mmol/L Carbon Dioxide Level 30 21-32 mmol/L Anion Gap 5.0 3-11 mmol/L Blood Urea Nitrogen 10 7-18 mg/dl Creatinine 0.98 0.60-1.40 mg/dl Est Creatinine Clear Calc Drug Dose 99.2 ml/min Estimated GFR () 106.0 Estimated GFR (Non- 91.4 BUN/Creatinine Ratio 10.5 10-20 Random Glucose 150 70-99 mg/dl Calcium Level 8.4 8.5-10.1 mg/dl Assessment & Plan S/P takedown of colostomy Doing well Continue ambulation Continue NGT for now.
[2017-01-08 03:47] VITALS: BP 115/65; PULSE 71; TEMP 36.9; O2SAT 95
[2017-01-08 06:06] LABS: BASO % 0.1 %; BASO ABS # 0.01 K/uL (0-0.2); COMPLETE YES; EOS % 0.8 %; HEMATOCRIT 38.2 % (42-52); IG% 0.3 %; LYMPH % 15.1 %; LYMPH ABS # 1.42 K/uL (1.2-3.4); MEAN CELL VOLUME 89.7 fL (80-100); MEAN CORPUSCULAR HEMOGLOBIN 29.6 pg (25-34); MEAN PLATELET VOLUME 9.4 fL (7.4-10.4); MONO % 10.8 %; NEUT % 72.9 %; PLATELET COUNT 151 K/uL (130-400); RED BLOOD COUNT 4.26 M/uL (4.7-6.1); WHITE BLOOD COUNT 9.42 K/uL (4.8-10.8)
[2017-01-08 06:33] LABS: CALCIUM 8.4 mg/dl (8.5-10.1); CREATININE 0.82 mg/dl (0.60-1.40); POTASSIUM 4.5 mmol/L (3.5-5.1)
[2017-01-08] MEDS: HYDROmorphone HCL 0.5MG/ML 50 ML CASSETTE IV PRN (06:52)
--- NOTE | 2017-01-08 07:45 | Surgery Progress Note ---
Surgery Progress Note Date of Service Jan 08, 2017. Subjective Post OP Day: 2 + feeling well, + ambulating, + pain controlled, + using SLOT FLOORMAN, No bowel movement , No flatus, No nausea, No vomiting Objective Vital Signs: Date Time Temp Pulse Resp B/P (MAP) Pulse Ox O2 Delivery O2 Flow Rate FiO2 01/08/17 03:47 36.9 71 16 115/65 (82) 95 Room Air 01/08/17 00:00 Room Air 01/07/17 23:20 36.8 68 16 116/70 (85) 97 Room Air 01/07/17 19:35 36.9 79 14 123/80 (94) 97 Room Air 01/07/17 15:45 96 Room Air 01/07/17 15:22 36.8 70 16 120/75 (90) 96 Room Air 01/07/17 12:00 36.7 66 16 118/82 (94) 98 Room Air 01/07/17 09:00 97 Room Air 01/07/17 08:13 36.6 72 16 122/80 (94) 97 Room Air 01/07/17 07:50 Room Air Physical Exam: nasogastric drainage (50cc / 24h) General Appearance: WD/WN, no apparent distress Abdomen: non tender ((incisional only)), non distended, soft, + abnormal bowel sounds (present but diminished) Incision(s): clean, dry, intact, no erythema, no drainage Laboratory Results: Results Past 24 Hours Test 01/08/17 05:41 Range/Units White Blood Count 9.42 4.8-10.8 K/uL Red Blood Count 4.26 4.7-6.1 M/uL Hemoglobin 12.6 14.0-18.0 g/dL Hematocrit 38.2 42-52 % Mean Corpuscular Volume 89.7 80-100 fL Mean Corpuscular Hemoglobin 29.6 25-34 pg Mean Corpuscular Hemoglobin Concent 33.0 32-36 g/dl Platelet Count 151 130-400 K/uL Mean Platelet Volume 9.4 7.4-10.4 fL Neutrophils (%) (Auto) 72.9 % Lymphocytes (%) (Auto) 15.1 % Monocytes (%) (Auto) 10.8 % Eosinophils (%) (Auto) 0.8 % Basophils (%) (Auto) 0.1 % Neutrophils # (Auto) 6.86 1.4-6.5 K/uL Lymphocytes # (Auto) 1.42 1.2-3.4 K/uL Monocytes # (Auto) 1.02 0.11-0.59 K/uL Eosinophils # (Auto) 0.08 0-0.5 K/uL Basophils # (Auto) 0.01 0-0.2 K/uL RDW Standard Deviation 41.3 36.4-46.3 fL RDW Coefficient of Variation 12.8 11.5-14.5 % Immature Granulocyte % (Auto) 0.3 % Immature Granulocyte # (Auto) 0.03 0.00-0.02 K/uL Sodium Level 142 136-145 mmol/L Potassium Level 4.5 3.5-5.1 mmol/L Chloride Level 107 98-107 mmol/L Carbon Dioxide Level 34 21-32 mmol/L Anion Gap 1.0 3-11 mmol/L Blood Urea Nitrogen 6 7-18 mg/dl Creatinine 0.82 0.60-1.40 mg/dl Est Creatinine Clear Calc Drug Dose 118.6 ml/min Estimated GFR () 122.0 Estimated GFR (Non- 105.3 BUN/Creatinine Ratio 7.0 10-20 Random Glucose 114 70-99 mg/dl Calcium Level 8.4 8.5-10.1 mg/dl Assessment & Plan s/p Colostomy reversal with primary colorectal anastomosis -Remove NGT today -Decrease NSS IVF to 80ml/hr -Continue SLOT FLOORMAN for pain control -Start sips of clear liquids -Encourage ambulation
[2017-01-08] MEDS: D5W AND 1/2NSS + 20MEQ KCL 1,000 ML IV SCH ×3 (08:05→21:01)
[2017-01-08] MEDS: ENOXAPARIN 40 MG/0.4 ML SYR SQ SCH (08:07)
[2017-01-08 08:09] VITALS: BP 132/90; PULSE 80; TEMP 36.6; O2SAT 95
[2017-01-08] MEDS: ALUMINUM/MAGNESIUM SUSP 30 ML UDC NG SCH (09:00)
[2017-01-08 09:14] VITALS: O2SAT 95
[2017-01-08] MEDS ORDERED: NURSING VERBAL MED ORDER ONE ×2 (13:15→18:30)
[2017-01-08] MEDS: SODIUM CHLORIDE 0.9% 1000ML 1,000 ML IV SCH (14:02)
[2017-01-08 15:05] VITALS: BP 127/85; PULSE 80; TEMP 36.7; O2SAT 95
[2017-01-08] MEDS ORDERED: DiphenhydrAMINE HCL 50 MG/ML VIAL IV SCH (18:45)
[2017-01-08] MEDS: OXYCODONE/ACETAMINOPHEN 5-325 TAB PO PRN (20:08)
[2017-01-08 23:20] VITALS: BP 120/63; PULSE 75; TEMP 36.8; O2SAT 95
[2017-01-09] MEDS: OXYCODONE/ACETAMINOPHEN 5-325 TAB PO PRN ×5 (00:39→21:03)
[2017-01-09 06:35] LABS: BASO % 0.2 %; BASO ABS # 0.01 K/uL (0-0.2); COMPLETE YES; EOS % 2.7 %; HEMATOCRIT 36.7 % (42-52); IG% 0.2 %; LYMPH % 23.4 %; LYMPH ABS # 1.46 K/uL (1.2-3.4); MEAN CELL VOLUME 88.2 fL (80-100); MEAN CORPUSCULAR HEMOGLOBIN 29.3 pg (25-34); MEAN CORPUSCULAR HGB CONC 33.2 g/dl (32-36); MEAN PLATELET VOLUME 9.2 fL (7.4-10.4); MONO % 10.3 %; NEUT % 63.2 %; PLATELET COUNT 156 K/uL (130-400); RED BLOOD COUNT 4.16 M/uL (4.7-6.1); WHITE BLOOD COUNT 6.23 K/uL (4.8-10.8)
[2017-01-09 07:09] LABS: CREATININE 0.73 mg/dl (0.60-1.40)
[2017-01-09] MEDS: ONDANSETRON INJ 2 MG/ML 2 ML VIAL IV PRN (08:12)
[2017-01-09 08:13] VITALS: BP 130/88; PULSE 74; TEMP 36.8; O2SAT 97
[2017-01-09] MEDS: ENOXAPARIN 40 MG/0.4 ML SYR SQ SCH (08:14)
[2017-01-09 08:56] VITALS: O2SAT 97
--- NOTE | 2017-01-09 09:24 | Surgery Progress Note ---
Surgery Progress Note Date of Service Jan 09, 2017. Subjective Post OP Day: 3 + feeling well, + ambulating, + flatus, + pain controlled, + diet (tolerating sips of clear liquids), No SOB, No bowel movement, No nausea, No vomiting PIG STICKER transitioned to PO pain meds overnight due to itching - patient states itching has improved and pain is well controlled. Objective Vital Signs: Date Time Temp Pulse Resp B/P (MAP) Pulse Ox O2 Delivery O2 Flow Rate FiO2 01/09/17 08:56 97 Room Air 01/09/17 08:13 36.8 74 16 130/88 (102) 97 Room Air 01/09/17 07:30 Room Air 01/08/17 23:20 36.8 75 18 120/63 (82) 95 Room Air 01/08/17 20:10 Room Air 01/08/17 15:05 36.7 80 16 127/85 (99) 95 Room Air General Appearance: WD/WN, no apparent distress Respiratory/Chest: lungs clear, normal breath sounds Abdomen: normal bowel sounds, non distended, soft, + tenderness (appropriate for incision) Incision(s): clean, dry, intact, no erythema, drainage (minimal drainage from ostomy site) Laboratory Results: Results Past 24 Hours Test 01/09/17 05:51 Range/Units White Blood Count 6.23 4.8-10.8 K/uL Red Blood Count 4.16 4.7-6.1 M/uL Hemoglobin 12.2 14.0-18.0 g/dL Hematocrit 36.7 42-52 % Mean Corpuscular Volume 88.2 80-100 fL Mean Corpuscular Hemoglobin 29.3 25-34 pg Mean Corpuscular Hemoglobin Concent 33.2 32-36 g/dl Platelet Count 156 130-400 K/uL Mean Platelet Volume 9.2 7.4-10.4 fL Neutrophils (%) (Auto) 63.2 % Lymphocytes (%) (Auto) 23.4 % Monocytes (%) (Auto) 10.3 % Eosinophils (%) (Auto) 2.7 % Basophils (%) (Auto) 0.2 % Neutrophils # (Auto) 3.94 1.4-6.5 K/uL Lymphocytes # (Auto) 1.46 1.2-3.4 K/uL Monocytes # (Auto) 0.64 0.11-0.59 K/uL Eosinophils # (Auto) 0.17 0-0.5 K/uL Basophils # (Auto) 0.01 0-0.2 K/uL RDW Standard Deviation 39.7 36.4-46.3 fL RDW Coefficient of Variation 12.4 11.5-14.5 % Immature Granulocyte % (Auto) 0.2 % Immature Granulocyte # (Auto) 0.01 0.00-0.02 K/uL Creatinine 0.73 0.60-1.40 mg/dl Est Creatinine Clear Calc Drug Dose 133.2 ml/min Estimated GFR () 128.0 Estimated GFR (Non- 110.5 Assessment & Plan s/p Colostomy reversal with primary colorectal anastomosis -Continue NSS IVF to 80ml/hr -Continue PO pain meds for pain control -Advance to full liquids - await BM prior to advancing further -Encourage ambulation s/p Colostomy reversal with primary colorectal anastomosis -Remove NGT today -Decrease NSS IVF to 80ml/hr -Continue PIG STICKER for pain control -Start sips of clear liquids -Encourage ambulation
[2017-01-09] MEDS: D5W AND 1/2NSS + 20MEQ KCL 1,000 ML IV SCH ×2 (09:25→21:41)
[2017-01-09 15:20] VITALS: BP 126/78; PULSE 74; TEMP 36.6; O2SAT 96
[2017-01-09 23:14] VITALS: BP 109/71; PULSE 65; TEMP 36.7; O2SAT 98
[2017-01-10] MEDS: OXYCODONE/ACETAMINOPHEN 5-325 TAB PO PRN ×3 (04:35→12:50)
--- NOTE | 2017-01-10 07:41 | Surgery Progress Note ---
Surgery Progress Note Date of Service Jan 10, 2017. Subjective Post OP Day: 4 + bowel movement, + flatus, + pain controlled, + diet (tolerated full liquid diet), No complaints, No nausea, No vomiting Objective Vital Signs: Date Time Temp Pulse Resp B/P (MAP) Pulse Ox O2 Delivery O2 Flow Rate FiO2 01/09/17 23:14 36.7 65 14 109/71 (84) 98 Room Air 01/09/17 20:30 Room Air 01/09/17 15:20 36.6 74 16 126/78 (94) 96 Room Air 01/09/17 08:56 97 Room Air 01/09/17 08:13 36.8 74 16 130/88 (102) 97 Room Air Abdomen: normal bowel sounds, non distended, soft, + tenderness (incisional only) Assessment & Plan S/P takedown of colostomy Doing well Continue ambulation Advance to regular diet
[2017-01-10 07:43] VITALS: BP 132/84; PULSE 61; TEMP 36.4; O2SAT 98
[2017-01-10 08:01] VITALS: O2SAT 98
[2017-01-10] MEDS: ENOXAPARIN 40 MG/0.4 ML SYR SQ SCH (08:27)
[2017-01-10] MEDS: D5W AND 1/2NSS + 20MEQ KCL 1,000 ML IV SCH (10:14)
[2017-01-10 15:40] VITALS: BP 144/94; PULSE 72; TEMP 36.5; O2SAT 98
--- NOTE | 2017-01-10 15:40 | Discharge Instructions ---
Discharge Instructions Date of Service Jan 10, 2017. Admission Reason for Admission: Colostomy In Place Discharge Discharge Diagnosis / Problem: Same Discharge Goals Goal(s): Decrease discomfort, Improve function Activity Recommendations Activity Limitations: per Instructions/Follow-up section Lifting Limitations: no more than 10 pounds (for 6 weeks) Shower/Bathe: tomorrow (Shower only) . Instructions / Follow-Up Instructions / Follow-Up Post-Surgical ~ Discharge Instructions Activity Recommendations: - lifting limitation: (10 pounds for 6 weeks), - exercise/sex/sports limit: (nonstrenuous for 2 weeks), - driving or machine use limit: (none for 2 week), - Shower/bathe limit: (may shower) Diet: - Resume previous diet SPECIAL CARE INSTRUCTIONS: - Call the surgeon's office with any questions or concerns - -- Make appointment for Wednesday 01/17 to have soham removed - (ex. temperature higher than 101 degrees F, excessive bleeding or pain). MEDICATIONS: - Resume previous medications unless instructed otherwise by your surgeon. - Ibuprofen 600 mg every 6 hours with food - Percocet 1 every 4 hours, as needed for pain FOLLOW UP VISIT: - If not already scheduled, please call the office to schedule a two week follow-up appointment. Office number Current Hospital Diet Patient's current hospital diet: Regular Diet Discharge Diet Recommended Diet: Low Fiber Diet Procedures Procedures Performed: Reversal Colostomy Pending Studies Studies pending at discharge: no Medical Emergencies . Who to Call and When: Medical Emergencies: If at any time you feel your situation is an emergency, please call 911 immediately. . Non-Emergent Contact Non-Emergency issues call your: Primary Care Provider, Surgeon Call Non-Emergent contact if: your pain is worsening, wound has increased drainage, wound has increased redness . "Provider Documentation" section prepared by Felipe Brown. . VTE Core Measure Inpt VTE Proph given/why not?: Treatment not indicated
[2017-01-10 15:45] VITALS: BP 144/94; PULSE 72; TEMP 36.5; O2SAT 98
--- NOTE | 2017-01-17 14:05 | Discharge Summary ---
Discharge Summary Dates Admission Date / Time: Jan 06, 2017 at 08:38 Discharge Date: Jan 10, 2017 Dispostion / Condition Discharge Disposition: Home Condition at Discharge: Good Principal Diagnosis (1) Colostomy in place (2) Diverticulitis of intestine with perforation Problem List (1) Diverticulitis of intestine with perforation Consultations / Procedures Consultations: None Procedures: Takedown of Colostomy Pending Studies / Follow-Up None Medication Reconciliation Continued Medications: Ibuprofen (Advil) 200 Mg Tab 200-600 MG PO Q4H PRN for Pain, TAB Admission HPI Per the Admitting provider: Damian had history of perforated diverticulitis in September and underwent sigmoid resection with Corrina's procedure and colostomy formation by Dr. Brown. Damian has healed from his initial surgery and wanted reversal of his ostomy. He was scheduled for elective colostomy reversal with Dr. Brown at [facility]. Hospital Course (1) History of colostomy reversal Damian underwent takedown of his colostomy by Dr. Brown and Dr. Muniz on 2016. Procedure was uncomplicated and patient tolerated procedure well. He was transferred to recovery in stable condition and then to Med/Surg floor for post operative care. He was kept NPO with NGT to LIS, IV fluids, IV antibiotics (Cefoxitin 1 gm for 3 doses), Dilaudid PEPPER CUTTER, IV zofran, Lovenox, and SCDs. POD # 1 no significant changes were made, no return of bowel function yet. NGT was continued as well as PEPPER CUTTER for pain and kept NPO. POD # 2 had some flatus. NGT was removed and started on sips of clears. POD # 3 diet was advanced to full liquids, PEPPER CUTTER was discontinued and started on PO Percocet as needed for pain. Iv fluids were decreased to 80 mls/hr. On POD # 4 diet was advanced to regular diet. He was discharged home on POD # 4 in stable condition. Overall hospital course was uneventful. Discharge Instructions as given to patient Copies To Primary Care Provider: No Doctor, Assigned.
== END 2017-01-10 16:21 | disposition home or self-care (01) | DRG 331 ==
LOC: C.ACU 08:22 → C.MSN 08:38 → ENRESERV 15:44
PROVIDERS: ADMIT Surgery; ATTEND Surgery
PROC: 0DQN0ZZ Repair Sigmoid Colon, Open Approach (ICD-10-PCS; principal; 2017-01-06 10:00)
DX: Z43.3 Encounter for attention to colostomy (principal); Z87.19 Personal history of other diseases of the digestive system; Z79.899 Other long term (current) drug therapy

== ENCOUNTER → 2017-09-18 | Outpatient (CLI) | payer OTHER ==
[~2017-09-18] MED LIST changes: -CEFOXITIN IV 2,000 MG in DEXTROSE 5% 50ML 50 ML IV SCH; -LACTATED RINGER'S 1000ML 1,000 ML IV SCH
[2017-09-18 13:09] LABS: BASO % 0.4 %; BASO ABS # 0.03 K/uL (0-0.2); EOS % 2.4 %; HEMATOCRIT 47.3 % (42-52); HEMOGLOBIN 16.1 g/dL (14.0-18.0); IG# 0.04 K/uL (0.00-0.02); LYMPH % 20.5 %; LYMPH ABS # 1.73 K/uL (1.2-3.4); MEAN CELL VOLUME 88.2 fL (80-100); MEAN PLATELET VOLUME 9.5 fL (7.4-10.4); MONO % 8.9 %; MONO ABS # 0.75 K/uL (0.11-0.59); NEUT % 67.3 %; NEUT ABS # 5.69 K/uL (1.4-6.5); PLATELET COUNT 199 K/uL (130-400); RED CELL DISTRIBUTION WIDTH CV 12.6 % (11.5-14.5); RED CELL DISTRIBUTION WIDTH SD 40.4 fL (36.4-46.3); WHITE BLOOD COUNT 8.44 K/uL (4.8-10.8)
[2017-09-18 14:22] LABS: ALBUMIN 4.1 gm/dl (3.4-5.0); ALT/SGPT 31 U/L (12-78); AST/SGOT 22 U/L (15-37); BLOOD UREA NITROGEN 18 mg/dl (7-18); CALCIUM 8.8 mg/dl (8.5-10.1); CARBON DIOXIDE 30 mmol/L (21-32); CREATININE 1.12 mg/dl (0.60-1.40); GLUCOSE 105 mg/dl (70-99); SODIUM 138 mmol/L (136-145)
[2017-09-18 14:25] LABS: ALKALINE PHOSPHATASE 77 U/L (45-117); CHOLESTEROL 215 mg/dl (0-200); LDL CHOLESTEROL CALCULATED 124 mg/dl; TOTAL PROTEIN 7.5 gm/dl (6.4-8.2)
== END | disposition home or self-care (01) ==
LOC: C.LABPVFM 08:14
PROVIDERS: ATTEND Family Medicine
DX: R45.4 Irritability and anger (principal)

== ENCOUNTER → 2017-11-06 | Outpatient (CLI) | payer OTHER ==
--- NOTE | 2017-11-06 13:36 | DIAGNOSTIC IMAGING REPORT ---
ABDOMEN AND PELVIS CT WITH IV CONTRAST CT DOSE: 374.05 mGy.cm HISTORY: Follow-up study in a patient with history of recent diverticulitis. K57.32 Diverticulitis of colon STAT RESULTS TECHNIQUE: Multiaxial CT images of the abdomen and pelvis were performed following the use of intravenous contrast. A dose lowering technique was utilized adhering to the principles of ALARA. COMPARISON STUDY: CT abdomen and pelvis 10/07/2013. FINDINGS: Minimal subsegmental dependent bibasilar atelectasis. There is resolution of the previously noted pneumoperitoneum. Imaged inferior cardiac chambers are unremarkable. 4 mm low attenuating lesion of the hepatic dome is too small to characterize however suggests hepatic cyst with similar appearing lesion of the lateral left hepatic lobe measured 5 mm. The liver is otherwise unremarkable. No intrahepatic biliary ductal dilation. The gallbladder, spleen, pancreas and adrenal glands are within normal limits. The kidneys, ureters and bladder are unremarkable. Coarse calcifications of the central prostate. No aortic aneurysm. The IVC is unremarkable. No bulky adenopathy identified. Portal vein is patent. There is no bowel obstruction. Postoperative changes from interval partial resection of the sigmoid colon with normal appearance of the anastomotic site. There is mild wall thickening of the mid descending colon with inflammatory changes centered about a diverticulum. Mild surrounding pericolonic inflammatory stranding. No evidence of perforation or drainable fluid collection. Mild wall thickening of the distal transverse colon and splenic flexure. The appendix is nondistended definitively visualized. No secondary signs of acute appendicitis. Mild diastases recti. Postoperative changes of the anterior abdominal wall. The bones appear intact. Moderate intervertebral disc space narrowing with posterior disc ossify complex formation at L5-S1. IMPRESSION: 1. Mild acute uncomplicated diverticulitis of the mid descending colon. No evidence of pneumoperitoneum or drainable fluid collection. 2. Interval partial resection of the sigmoid colon. 3. No bowel obstruction. Electronically signed by: Sim Washington M.D. 11/06/2017 1:35 PM Dictated Date/Time: 11/06/2017 1:26 PM
== END | disposition home or self-care (01) ==
LOC: C.CTS 12:44
PROVIDERS: ATTEND Family Medicine
DX: K57.32 Diverticulitis of large intestine without perforation or abscess without bleeding (principal); R10.9 Unspecified abdominal pain; R11.2 Nausea with vomiting, unspecified

== ENCOUNTER → 2017-11-06 | Outpatient (CLI) | payer OTHER ==
--- NOTE | 2017-11-06 11:54 | DIAGNOSTIC IMAGING REPORT ---
PA CHEST RADIOGRAPH AND UPRIGHT AND SUPINE AP RADIOGRAPHS OF THE ABDOMEN CLINICAL HISTORY: Abdominal pain. COMPARISON STUDY: CT of the abdomen and pelvis October 07, 2016. FINDINGS: Lung volumes are normal. No pneumothorax or pleural effusion is noted. There is no consolidation. Pulmonary vascularity is normal. Cardiomediastinal silhouette is normal. There is no free air. A bowel anastomosis within the pelvis is noted. There is no evidence for a bowel obstruction. No urinary calculi are identified. IMPRESSION: 1. No free air or evidence of bowel obstruction. 2. No acute cardiopulmonary findings. Electronically signed by: Dano Richard M.D. 11/06/2017 11:52 AM Dictated Date/Time: 11/06/2017 11:51 AM
== END | disposition home or self-care (01) ==
LOC: C.RADPV 11:12
PROVIDERS: ATTEND Family Medicine
DX: R10.9 Unspecified abdominal pain (principal)